=== PATIENT | male | born 1970 | race American Indian/Alaskan Native ===

== ENCOUNTER 2016-08-09 19:22 | Inpatient (IN) | payer OTHER ==
--- NOTE | 2016-08-09 19:39 | Emergency Department Report ---
HPI - General Chief Complaint: Chest Pain Time Seen by Provider: 08/09/16 19:30 - HPI HPI: This is a 46-year-old Afro-Eritrean male who presents to the emergency department by EMS from home with complaint of a one-hour history of left-sided chest pain that with radiation to the shoulder, down the left arm and to the back. He denies any shortness of breath, nausea, vomiting or diaphoresis. He did not take anything prior to presentation and was not given anything by EMS. His past medical history includes an aortic valve replacement last year at [facility] and hypertension. No recent travel or sick contacts at home. He denies any tobacco or illicit drug use or abuse. His cardiologists are through [facility] and/or the [place] [facility]ology group and his primary care doctor is through [facility]. ED Past Medical Hx - Past Medical History Previous Medical History?: Yes Hx Hypertension: Yes Hx Heart Attack/AMI: Yes Hx Psychiatric Treatment: Yes (Anxiety) - Surgical History Additional Surgical History: spinal fusion AORTC VALVE REPLACED, HERNIA REPAIR , ABD RESECTION - Social History Smoking Status: Never Smoker Substance Use Type: None - Medications Home Medications: Home Medications Medication Instructions Recorded Confirmed Last Taken Type Lisinopril [Zestril TAB] 40 mg PO QDAY #30 tablet 06/10/15 08/09/16 1 Day Ago Rx Metoprolol Tartrate 100 mg PO BID 08/09/16 08/09/16 1 Day Ago History ED Review of Systems ROS: Stated complaint: CP Other details as noted in HPI Comment: All other systems reviewed and negative Constitutional: denies: chills, fever Eyes: denies: eye pain, eye discharge, vision change ENT: denies: ear pain, throat pain Respiratory: denies: cough, shortness of breath, wheezing Cardiovascular: chest pain. denies: palpitations Gastrointestinal: denies: abdominal pain, nausea, diarrhea Musculoskeletal: back pain, arthralgia Skin: denies: rash, lesions Neurological: denies: headache, weakness, paresthesias Physical Exam - Physical Exam Vital Signs: Vital Signs 08/09/16 19:30 Temperature 98.8 F Pulse Rate 69 Respiratory 14 Rate Blood Pressure 165/102 Blood Pressure 183/104 [Left] O2 Sat by Pulse 98 Oximetry Physical Exam: GENERAL: The patient is well-developed well-nourished. Patient appears uncomfortable but in no acute distress. HEENT: Normocephalic. Atraumatic. Extraocular motions are intact. Patient has moist mucous membranes. Pupils equal reactive to light bilaterally. NECK: Supple. Trachea is midline. CHEST/LUNGS: Clear to auscultation. There is no respiratory distress noted. HEART/CARDIOVASCULAR: Regular. There is no tachycardia. There is no gallop rub or murmur. ABDOMEN: Abdomen is soft, nontender. Patient has normal bowel sounds. There is no abdominal distention. SKIN: Skin is warm and dry. NEURO: The patient is awake, alert, and oriented. The patient is cooperative. The patient has no focal neurologic deficits. The patient has normal speech. MUSCULOSKELETAL: There is no tenderness or deformity. There is no limitation range of motion. There is no evidence of acute injury. ED Course Vital Signs 08/09/16 19:30 Temperature 98.8 F Pulse Rate 69 Respiratory 14 Rate Blood Pressure 165/102 Blood Pressure 183/104 [Left] O2 Sat by Pulse 98 Oximetry ED Medical Decision Making - Lab Data Result diagrams: 08/09/16 19:47 08/09/16 19:47 - EKG Data -: EKG Interpreted by Me EKG shows normal: sinus rhythm, axis (left axis deviation), intervals, QRS complexes (right bundle-branch block, Q waves inferior leads), ST-T waves Rate: normal - EKG Data When compared to previous EKG there are: no significant change Interpretation: unchanged when compared t (06/16/15) - Radiology Data Radiology results: report reviewed, image reviewed interpreted by me: Chest x-ray did not show any acute process. No effusions. No pneumothorax. No signs of pneumonia seen. VQ scan is negative for pulmonary embolism - Medical Decision Making 46-year-old male presents the emergency department with acute left-sided chest pain with radiation to left arm, back and shoulder. Patient has a history of aortic dissection, aortic valve replacement. First troponin negative. EKG shows a bundle branch block and some Q waves in inferior leads but otherwise no change from previous and no ST elevation NJ. D-dimer is elevated so a CT angiography was going to be done. However the patient says that he does not think he is supposed to receive any contrast with some of his previous surgeries. For this reason a VQ scan was done instead came back negative for pulmonary embolus and. However the patient has not had a full cardiac workup in over a year and therefore will be admitted to hospital for further evaluation and treatment and has been accepted for admission by the hospitalist , Dr. Elise. - Differential Diagnosis NJ, PE, CHF, pneumonia Critical Care Time: No Critical care attestation.: If time is entered above; I have spent that time in minutes in the direct care of this critically ill patient, excluding procedure time. ED Disposition Clinical Impression: Hypertensive urgency Chest pain Qualifiers: Chest pain type: unspecified Qualified Code(s): R07.9 - Chest pain, unspecified Disposition: OP ADMITTED IP TO THIS HOSP Is pt being admited?: Yes Condition: Stable Instructions: Chest Pain (ED) Referrals: PRIMARY CARE, [Primary Care Provider] - 3-5 Days Time of Disposition: 23:52
[2016-08-09 19:56] LABS: Basophils % (Auto) 0.4 % (0.0-1.8); Eosinophils % (Auto) 1.4 % (0.0-4.3); Hemoglobin 13.9 gm/dl (11.8-15.2); Mean Corpuscular HGB Conc 32 % (32-34); Mean Corpuscular Hemoglobin 31 pg (28-32); Mean Corpuscular Volume 96 fl (84-94); Platelet Count 225 K/mm3 (140-440); Red Blood Count 4.48 M/mm3 (3.65-5.03); Red Cell Distribution Width 13.4 % (13.2-15.2)
[2016-08-09 20:21] LABS: Creatine Kinase MB 1.2 ng/mL (0.0-4.0)
[2016-08-09 20:22] LABS: Alanine Aminotransferase 13 units/L (7-56); Albumin 3.6 g/dL (3.9-5); Alkaline Phosphatase 68 units/L (35-129); Anion Gap 18 mmol/L; Bilirubin,Total 0.4 mg/dL (0.1-1.2); Blood Urea Nitrogen 12 mg/dL (9-20); Calcium 8.5 mg/dL (8.4-10.2); Carbon Dioxide 21 mmol/L (22-30); Chloride 101.4 mmol/L (98-107); Creatine Kinase 106 units/L (55-170); Glucose 116 mg/dL (75-100); Potassium 3.6 mmol/L (3.6-5.0); Sodium 137 mmol/L (137-145); Total Protein 7.2 g/dL (6.3-8.2)
[2016-08-09] MEDS ORDERED: BABY ASPIRIN PO ONE (20:37)
[2016-08-09] MEDS ORDERED: PERCOCET 5/325 PO ONE (20:47)
[2016-08-09 22:22] LABS: Bilirubin,Urine NEG (Negative); Blood,Urine NEG (Negative); Ketones,Urine NEG (Negative); Leukocyte Esterase,Urine NEG (Negative); Nitrite,Urine NEG (Negative); Protein,Urine <15 mg/dL mg/dL (Negative); Urobilinogen,Urine < 2.0 mg/dL (<2.0)
--- NOTE | 2016-08-09 23:33 | Nuclear Medicine Report ---
FINAL REPORT PROCEDURE: NM LUNG SCAN PERF/VENT TECHNIQUE: 5.0 mCi Tc-99m MAA was injected IV for pulmonary perfusion imaging in multiple projections. 15.0 mCi XE 133 gas was inhaled for pulmonary ventilation imaging in multiple projections. Injection site: RIGHT antecubital fossa. CPT 14008 HISTORY: CP, elevated dimer COMPARISON: Chest x-ray, earlier the same day FINDINGS: Perfusion: No defects. Homogeneous perfusion Ventilation: No defects . IMPRESSION: Normal Examination
[2016-08-09] MEDS ORDERED: DULCOLAX PR PRN (23:59)
[2016-08-09] MEDS ORDERED: ZOFRAN IV PRN (23:59)
[2016-08-09] MEDS ORDERED: TYLENOL PO PRN (23:59)
[2016-08-09] MEDS ORDERED: MILK OF MAGNESIA PO PRN (23:59)
--- NOTE | 2016-08-09 23:59 | History and Physical Report ---
History of Present Illness Date of examination: 08/10/16 History of present illness: 6-year-old man with a history of hypertension, aortic dissection comes emergency room with complaints of chest pain. Pain is in the left chest which she describes as a sharp stabbing pain, constant, intensity pelvic 10, radiating to the left arm, he cannot identify exacerbating or relieving factors. He denies nausea vomiting, shortness breath, diaphoresis or palpitation Patient denies cough, abdominal pain, hematochezia, dysuria, frequency, focal weakness, dysarthria, fever chills, polydipsia polyuria, hot or cold intolerance , easy bruisability, or rash or bleeding from mucosal membrane, rhinorrhea, epistaxis, earache, tinnitus, blurry vision, eye discharge, anxiety, depression. Other review of systems negative PAST SURGICAL HISTORY: Aorta repair secondary to dissection, Hernia repair, bipolar SOCIAL HISTORY: Social alcohol use, no tobacco or drugs FAMILY HISTORY: Hypertension Medications and Allergies Allergies Allergy/AdvReac Type Severity Reaction Status Date / Time morphine Allergy Rash Verified 08/09/16 19:36 Nitrate Analogues AdvReac Unknown Verified 08/09/16 19:36 tramadol AdvReac Unknown Verified 08/09/16 19:36 Home Medications Medication Instructions Recorded Confirmed Last Taken Type Lisinopril [Zestril TAB] 40 mg PO QDAY #30 tablet 06/10/15 08/09/16 1 Day Ago Rx Metoprolol Tartrate 100 mg PO BID 08/09/16 08/09/16 1 Day Ago History Exam - Physical Exam Narrative exam: Gen. appearance: Patient lying in bed, no apparent distress HEENT: Normocephalic, atraumatic, pupils equally round and reactive to light, extraocular movement intact, and no sclericterus,. No JVD or thyromegaly or nodule,neck supple, no carotid bruit ,mucous membranes moist, no exudate or erythema Heart: S1, S2, regular rate and rhythm Lungs: Clear to auscultation bilaterally, breathing comfortable Abdomen: Positive bowel sounds, nontender, nondistended, no organomegaly Extremity: No edema, cyanosis, clubbing Skin: No rash, nodules, warm, dry Neuro: Oriented 3, cranial nerves II-12 intact, speech is fluent, motor and sensory intact - Constitutional Vitals: Temp Pulse Resp BP Pulse Ox 98.8 F 69 18 183/104 98 08/09/16 19:30 08/09/16 19:30 08/09/16 21:06 08/09/16 19:30 08/09/16 20:18 Results - Labs CBC & Chem 7: 08/09/16 19:47 08/09/16 19:47 Labs: Abnormal lab results 08/09/16 08/09/16 08/09/16 Range/Units 19:47 19:47 21:09 MCV 96 H (84-94) fl [place] % (Auto) 7.8 H (0.0-7.3) % [place] # 0.9 H (0.0-0.8) K/mm3 D-Dimer 775.29 H (0-234) ng/mlDDU Carbon Dioxide 21 L (22-30) mmol/L Glucose 116 H (75-100) mg/dL Albumin 3.6 L (3.9-5) g/dL - Imaging and Cardiology EKG: image reviewed Chest x-ray: image reviewed Assessment and Plan VQ low probability for PE Hypertensive urgency Chest pain was likely secondary to #1 Check cardiac enzymes, lipid profile, consult cardiology Start DVT prophylaxis, IV morphine
[2016-08-10] MEDS ORDERED: MILK OF MAGNESIA PO PRN (00:19)
[2016-08-10] MEDS ORDERED: TYLENOL PO PRN (00:19)
[2016-08-10] MEDS ORDERED: DULCOLAX PR PRN (00:19)
[2016-08-10] MEDS ORDERED: SODIUM CHLORIDE FLUSH SYRINGE 10 ML IV PRN (00:19)
[2016-08-10] MEDS ORDERED: APRESOLINE IV PRN (00:19)
[2016-08-10] MEDS ORDERED: ZOFRAN IV PRN (00:19)
[2016-08-10] MEDS ORDERED: DILAUDID IV PRN (00:22)
--- NOTE | 2016-08-10 01:39 | Admit Criteria Form ---
Admission Criteria Documentation: HYPERTENSION Clinical Indications for Admission to Inpatient Care ( Place "X" for any and all applicable criteria): Admission is indicated for ANY ONE of the following(1)(2)(3)(4): [X ]I. Hypertensive emergency, with evidence of acute and progressing target organ disease as indicated by ANY ONE of the following: [ ]a) Hypertensive encephalopathy (eg, confusion, altered mental status) [ ]b) Cerebral infarction [ ]c) Intracranial hemorrhage [ ]d) Myocardial ischemia or infarction [ ]e) Pulmonary edema [X ]f) Aortic dissection [ ]g) Seizure [ ]h) Acute renal insufficiency [ ]i) Papilledema [ ]j) Microangiopathic hemolytic anemia [ ]II. Adrenergic crisis (eg, severe hypertension due to pheochromocytoma crisis, cocaine or amphetamine intoxication, or clonidine withdrawal) [ ]III. Severe hypertension (SBP greater than 180 mmHg or DBP greater than 110 mmHg or greater than the 95th percentile for age, gender, and height in pediatric patients) that cannot be controlled (eg, to SBP less than 160 mmHg and DBP less than 100 mmHg in adults) by treatment with oral medication in emergency department or observation care Extended stay beyond goal length of stay may be needed for(11)(12)(13): [ ]a) Persistent hypertensive encephalopathy [ ]b) Continuation of pulmonary edema [ ]c) Recurring or persistent severe hypertension [ ]d) Target organ damage (eg, angina, stroke, aortic dissection) [ ]e) Associated renal insufficiency The original [employer] content created by [employer] has been revised. The portions of the content which have been revised are identified through the use of italic text or in bold, and [facility] has neither reviewed nor approved the modified material. All other unmodified content is copyright [employer]. Please see references footnoted in the original [facility] edition 2016 Admission Criteria Met: Yes
--- NOTE | 2016-08-10 08:52 | Consultation ---
History of Present Illness Consult date: 08/10/16 Requesting physician: JOSR MCDONALD Consult reason: chest pain, other (H/o dissection ) History of present illness: Pt is a 46YO male with a past medical history significant for HTN and ascending aortic dissection with retrograde hematoma to ascending aorta s/p repair on 2015. He is followed by cardiology team at [facility] and/or the [place] cardiology group and his primary care doctor is through [facility]. He presented with c/o chest pain since yesterday at 5PM. He states that he was at rest yesterday evening when he noted sudden onset, aching, nonexertional left- sided chest pain which radiated into his left shoulder and down his left arm. The pain persisted until he arrived at the ED and received ASA. He denies any associated SOB, orthopnea, n/v, palpitations, diaphoresis, dizziness, or syncope. He reports that he ran out of his BP medications and had not taken any medications for 2 days [employer]ANT DIRECT[employer]. On arrival, his BP was noted to be 183/104. He denies any prior occurrences of chest pain or cardiac issues since his aortic dissection repair in 06/2015. Past History Past Medical History: hypertension, other (ascending aortic dissection) Past Surgical History: Other (aortic dissection with repair; vertebral fusion ) Social history: , lives with family. denies: smoking, alcohol abuse, prescription drug abuse Medications and Allergies Allergies Allergy/AdvReac Type Severity Reaction Status Date / Time morphine Allergy Rash Verified 08/09/16 19:36 Nitrate Analogues AdvReac Unknown Verified 08/09/16 19:36 tramadol AdvReac Unknown Verified 08/09/16 19:36 Home Medications Medication Instructions Recorded Confirmed Last Taken Type Lisinopril [Zestril TAB] 40 mg PO QDAY #30 tablet 06/10/15 08/09/16 1 Day Ago Rx Metoprolol Tartrate 100 mg PO BID 08/09/16 08/09/16 1 Day Ago History Active Meds: Active Medications Acetaminophen (Tylenol) 650 mg PO Q4H PRN PRN Reason: Pain MILD(1-3)/Fever >100.5/YAÑEZ Bisacodyl (Dulcolax) 10 mg MS QDAY PRN PRN Reason: Constipation unrelieved by MOM Enoxaparin Sodium (Lovenox) 40 mg SUB-Q DAILY STEPHANIE Hydralazine HCl (Apresoline) 5 mg IV Q6H PRN PRN Reason: Hypertension Hydromorphone HCl (Dilaudid) 1 mg IV Q4H PRN PRN Reason: Pain , Severe (7-10) Last Admin: 08/10/16 02:21 Dose: 1 mg Magnesium Hydroxide (Milk Of Magnesia) 30 ml PO Q4H PRN PRN Reason: Constipation Ondansetron HCl (Zofran) 4 mg IV Q8H PRN PRN Reason: N/V unrelieved by Reglan Sodium Chloride (Sodium Chloride Flush Syringe 10 Ml) 10 ml IV PRN PRN PRN Reason: LINE FLUSH Review of Systems Constitutional: no weight loss, no weight gain, no fever, no chills, no sweats Ears, nose, mouth and throat: no ear pain, no nose pain, no sinus pressure, no sinus pain Cardiovascular: chest pain, high blood pressure, no orthopnea, no palpitations, no rapid/irregular heart beat, no edema, no syncope, no lightheadedness, no shortness of breath, no dyspnea on exertion, no paroxysmal nocturnal dyspnea, no leg edema, no decreased exercise tolerance Respiratory: no cough, no shortness of breath, no dyspnea on exertion, no congestion, no wheezing, no pain on inspiration Gastrointestinal: no abdominal pain, no nausea, no vomiting, no diarrhea, no constipation, no change in bowel habits Genitourinary Male: no dysuria, no hematuria, no flank pain, no discharge, no urinary frequency, no urinary hesitancy Musculoskeletal: shooting arm pain (LUE associated with cp), no neck stiffness, no neck pain, no arm numbness/tingling, no low back pain, no shooting leg pain, no leg numbness/tingling, no redness of joints Integumentary: no rash, no pruritis, no redness, no sores, no wounds Neurological: no head injury, no paralysis, no weakness, no parathesias, no numbness, no tingling, no seizures, no syncope, no lack of coordination Endocrine: no cold intolerance, no heat intolerance Hematologic/Lymphatic: no easy bruising, no easy bleeding, no lymphadenopathy Allergic/Immunologic: no urticaria, no wheezing, no persistent infections Physical Examination Last Vital Signs Temp 97.8 F 08/10/16 08:19 Pulse 63 08/10/16 08:19 Resp 18 08/10/16 08:19 BP 136/90 08/10/16 08:19 Pulse Ox 97 08/10/16 08:19 General appearance: no acute distress HEENT: Positive: PERRL, Normocephaly, Mucus Membranes Moist Neck: Positive: neck supple, trachea midline Cardiac: Positive: Reg Rate and Rhythm, S1/S2 Lungs: Positive: Normal Exam, clear to auscultation, Normal Breath Sounds Neuro: Positive: Grossly Intact, Cranial Nerve 2-12 Intact Abdomen: Positive: Unremarkable, Soft, Active Bowel Sounds. Negative: Tender Skin: Positive: Clear. Negative: Rash, Wound Musculoskeletal: No Fluid Collection, No Pain, Normal Range of Motion Extremities: Present: normal, upper extr. pulses, lower extr. pulses. Absent: edema Results 08/09/16 19:47 08/09/16 19:47 - Imaging and Cardiology Echo: pending Cardiac cath: report reviewed (06/2015: no significant CAD, RCA dominant mild LI , LAD and ramus mild LI, small LCX LI, EF 55%, ascending aortic hematoma) EKG: report reviewed, image reviewed EKG interpretations - Telemetry EKG Rhythm: Sinus Rhythm - EKG Sinus rhythms and dysrhythmias: sinus rhythm AV and intraventricular conduction: right bundle branch block Myocardial infarction: inferior IN (old age inde Assessment and Plan Assessment: Chest pain, atypical - Sukhjinder negative for AMI x 3 sets; ECG with NAF; CXR with NAF ; C 06/21/2015 revealed no significant CAD, RCA dominant mild LI, LAD and ramus mild LI, small LCX LI, EF 55%, ascending aortic hematoma. Accelerated HTN Elevated DDimer - V/Q scan negative for PE H/o ascending aortic dissection with retrograde hematoma to ascending aorta s/p repair on 06/22/2015 RBBB - present since 06/2015 Plan: Obtain echo. ACS ruled out. No indication for ischemic evaluation at this time. Initiate toprol XL 100mg daily, and lisinopril, 40mg daily. Assessment and plan reviewed with pt at bedside. The patient has been seen in conjunction with Dr. Campuzano who agrees with the assessment and plan of care.
--- NOTE | 2016-08-10 09:12 | XRay Report ---
PORTABLE CHEST INDICATION: Chest pain. COMPARISON: 07/13/2015 chest imaging. FINDINGS: Portable, frontal chest radiograph demonstrates interval sternotomy. Right axillary surgical clips are also new. Slightly greater inspiration with mild exaggerated cardiomediastinal silhouette and slightly crowded lung markings centrally in this patient with aortic knob again prominent/known aortic dissection. Lungs though clear. EKG leads. No acute osseous process. CONCLUSION: Interval sternotomy in this patient with known aortic dissection in the past, as described. Please also correlate clinically. I phoned the above results to Dr. Aguilar, 9:00 AM, 08/10/2016. Thank you for the opportunity to participate in this patient's care.
[2016-08-10] MEDS ORDERED: LOVENOX SUB-Q SCH (10:00)
[2016-08-10 10:35] LABS: Creatine Kinase MB < 1.0 ng/mL (0.0-4.0)
[2016-08-10 10:37] LABS: Creatine Kinase 81 units/L (55-170)
[2016-08-10] MEDS: TOPROL XL PO SCH (13:08)
[2016-08-10] MEDS: ZESTRIL PO SCH (13:09)
[2016-08-10] MEDS: LOVENOX SUB-Q SCH (13:09)
--- NOTE | 2016-08-10 15:06 | Progress Note ---
Assessment and Plan Assessment and plan: 1. Chest pain EKG with no acute ischemia changes, cardiac enzymes negative Cardiac cath one year ago showing nonobstructive CAD D-dimer elevated, so a VQ scan obtained but with low probability for PE ECHO pending Likely secondary to uncontrolled hypertension Cardiology following 2. Uncontrolled hypertension Due to noncompliance BP 183/108 on admission Started on metoprolol and lisinopril Today SBP in 130s Monitor and adjust regimen as needed 3. Noncompliance Consult regarding importance of adherence to treatment and follow-ups 4. 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 RBBB since 06/28 6. DVT prophylaxis Lovenox 7. Discharge planning Discharge in a.m. if BP well controlled and cardiology agrees Hospitalist Physical - Constitutional Vitals: Temp Pulse Resp BP Pulse Ox 98.0 F 58 L 18 139/80 95 08/10/16 12:16 08/10/16 13:09 08/10/16 12:16 08/10/16 13:09 08/10/16 12:16 General appearance: Present: no acute distress, obese - EENT Eyes: Present: PERRL, EOM intact. Absent: scleral icterus, conjunctival injection - Neck Neck: Present: supple, normal ROM. Absent: masses or JVD - Respiratory Respiratory effort: normal Respiratory: bilateral: CTA, negative: rhonchi, wheezing - Cardiovascular Rhythm: regular Heart Sounds: Present: S1 & S2 - Extremities Extremities: no ischemia, No edema - Abdominal General gastrointestinal: soft, non-tender, non-distended, normal bowel sounds - Psychiatric Psychiatric: cooperative - Neurologic Neurologic: CNII-XII intact, no focal deficits Results - Labs CBC & Chem 7: 08/09/16 19:47 08/09/16 19:47 Labs: Laboratory Last Values WBC 11.0 K/mm3 (4.5-11.0) 08/09/16 19:47 RBC 4.48 M/mm3 (3.65-5.03) 08/09/16 19:47 Hgb 13.9 gm/dl (11.8-15.2) 08/09/16 19:47 Hct 43.0 % (35.5-45.6) 08/09/16 19:47 MCV 96 fl (84-94) H 08/09/16 19:47 MCH 31 pg (28-32) 08/09/16 19:47 MCHC 32 % (32-34) 08/09/16 19:47 RDW 13.4 % (13.2-15.2) 08/09/16 19:47 Plt Count 225 K/mm3 (140-440) 08/09/16 19:47 Lymph % (Auto) 21.8 % (13.4-35.0) 08/09/16 19:47 [place] % (Auto) 7.8 % (0.0-7.3) H 08/09/16 19:47 Eos % (Auto) 1.4 % (0.0-4.3) 08/09/16 19:47 Baso % (Auto) 0.4 % (0.0-1.8) 08/09/16 19:47 Lymph # 2.4 K/mm3 (1.2-5.4) 08/09/16 19:47 [place] # 0.9 K/mm3 (0.0-0.8) H 08/09/16 19:47 Eos # 0.2 K/mm3 (0.0-0.4) 08/09/16 19:47 Baso # 0.0 K/mm3 (0.0-0.1) 08/09/16 19:47 Seg Neutrophils % 68.6 % (40.0-70.0) 08/09/16 19:47 Seg Neutrophils # 7.5 K/mm3 (1.8-7.7) 08/09/16 19:47 D-Dimer 775.29 ng/mlDDU (0-234) H 08/09/16 21:09 Sodium 137 mmol/L (137-145) 08/09/16 19:47 Potassium 3.6 mmol/L (3.6-5.0) 08/09/16 19:47 Chloride 101.4 mmol/L (98-107) 08/09/16 19:47 Carbon Dioxide 21 mmol/L (22-30) L 08/09/16 19:47 Anion Gap 18 mmol/L 08/09/16 19:47 BUN 12 mg/dL (9-20) 08/09/16 19:47 Creatinine 1.0 mg/dL (0.8-1.5) 08/09/16 19:47 Estimated GFR > 60 ml/min 08/09/16 19:47 BUN/Creatinine Ratio 12.00 % 08/09/16 19:47 Glucose 116 mg/dL (75-100) H 08/09/16 19:47 Calcium 8.5 mg/dL (8.4-10.2) 08/09/16 19:47 Total Bilirubin 0.4 mg/dL (0.1-1.2) 08/09/16 19:47 AST 15 units/L (5-40) 08/09/16 19:47 ALT 13 units/L (7-56) 08/09/16 19:47 Alkaline Phosphatase 68 units/L (35-129) 08/09/16 19:47 Total Creatine Kinase 81 units/L (55-170) 08/10/16 10:00 CK-MB (CK-2) < 1.0 ng/mL (0.0-4.0) 08/10/16 10:00 CK-MB (CK-2) Rel Index 1.2 (0-4) 08/10/16 10:00 Troponin T 0.082 ng/mL (0.00-0.029) H D 08/10/16 13:15 Total Protein 7.2 g/dL (6.3-8.2) 08/09/16 19:47 Albumin 3.6 g/dL (3.9-5) L 08/09/16 19:47 Albumin/Globulin Ratio 1.0 % 08/09/16 19:47 Urine Color Straw (Yellow) 08/09/16 21:56 Urine Turbidity Clear (Clear) 08/09/16 21:56 Urine pH 6.0 (5.0-7.0) 08/09/16 21:56 Ur Specific [place] 1.008 (1.003-1.030) 08/09/16 21:56 Urine Protein <15 mg/dl mg/dL (Negative) 08/09/16 21:56 Urine Glucose (UA) Neg mg/dL (Negative) 08/09/16 21:56 Urine Ketones Neg mg/dL (Negative) 08/09/16 21:56 Urine Blood Neg (Negative) 08/09/16 21:56 Urine Nitrite Neg (Negative) 08/09/16 21:56 Urine Bilirubin Neg (Negative) 08/09/16 21:56 Urine Urobilinogen < 2.0 mg/dL (<2.0) 08/09/16 21:56 Ur Leukocyte Esterase Neg (Negative) 08/09/16 21:56 Urine WBC (Auto) 1.0 /HPF (0.0-6.0) 08/09/16 21:56 Urine RBC (Auto) 4.0 /HPF (0.0-6.0) 08/09/16 21:56 U Epithel Cells (Auto) < 1.0 /HPF (0-13.0) 08/09/16 21:56
[2016-08-11 05:33] LABS: Basophils % (Auto) 0.4 % (0.0-1.8); Eosinophils % (Auto) 1.7 % (0.0-4.3); Hematocrit 42.4 % (35.5-45.6); Hemoglobin 14.1 gm/dl (11.8-15.2); Mean Corpuscular HGB Conc 33 % (32-34); Mean Corpuscular Hemoglobin 32 pg (28-32); Mean Corpuscular Volume 96 fl (84-94); Platelet Count 209 K/mm3 (140-440); Red Blood Count 4.42 M/mm3 (3.65-5.03); Red Cell Distribution Width 13.5 % (13.2-15.2); White Blood Count 8.9 K/mm3 (4.5-11.0)
[2016-08-11 06:00] LABS: Anion Gap 16 mmol/L; Blood Urea Nitrogen 11 mg/dL (9-20); Calcium 8.8 mg/dL (8.4-10.2); Carbon Dioxide 22 mmol/L (22-30); Chloride 103.8 mmol/L (98-107); Glucose 109 mg/dL (75-100); Potassium 3.8 mmol/L (3.6-5.0); Sodium 138 mmol/L (137-145)
--- NOTE | 2016-08-11 10:07 | Discharge Summary ---
Providers - Providers Date of Admission: 08/09/16 23:59 Date of discharge: 08/11/16 Attending physician: WYATT LOPEZ 08/10/16 Consult to Cardiac Rehabilitation [CONS] Routine Reason For Exam: Phase I 08/10/16 00:19 Consult to Physician [CONS] Routine Consulting Provider: ELENA TINAJERO Reason For Exam: cp/ h/o dissection Place consult to:: Dr. Tsang Notified:: Kami NEFF Phone number called:: Was contact made?: Yes If yes, spoke with:: [facility] Time called:: 07:53 Primary care physician: CARDIOVASCULAR RADIOLOGIC TECHNOLOGIST Hospitalization Reason for admission: chest pain Condition: Stable Pertinent studies: CXR V/Q scan ECHO Disposition: DISCHARGED TO HOME OR SELFCARE Time spent for discharge: 35 min Core Measure Documentation - Palliative Care Palliative Care/ Comfort Measures: Not Applicable - Core Measures Any of the following diagnoses?: none Exam - Constitutional Vitals: Temp Pulse Resp BP Pulse Ox 97.7 F 76 18 164/100 94 08/11/16 08:30 08/11/16 08:30 08/11/16 08:30 08/11/16 08:30 08/11/16 08:30 Plan Activity: advance as tolerated Diet: low cholesterol, low salt Additional Instructions: 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
[2016-08-11] MEDS: TOPROL XL PO SCH (11:05)
[2016-08-11] MEDS: ZESTRIL PO SCH (11:05)
[2016-08-11] MEDS: LOVENOX SUB-Q SCH (11:06)
[2016-08-11 12:08] VITALS: BP 137/91
== END 2016-08-11 11:35 | disposition home or self-care (01) | DRG 305 ==
LOC: ED 19:22 → 4A 23:59
PROVIDERS: ADMIT Internal Medicine; ATTEND Internal Medicine
DX: I16.0 Hypertensive urgency (principal); R07.89 Other chest pain; I10 Essential (primary) hypertension; F41.9 Anxiety disorder, unspecified; I45.10 Unspecified right bundle-branch block; Z98.890 Other specified postprocedural states; Z72.89 Other problems related to lifestyle; Z88.6 Allergy status to analgesic agent; Z91.09 Other allergy status, other than to drugs and biological substances; Z91.14 Patient's other noncompliance with medication regimen; Z82.49 Family history of ischemic heart disease and other diseases of the circulatory system
CPT/HCPCS: 36415; 71010; 78582; 80048; 80053; 81001; 82550; 82553; 84484; 85025; 85379; 93005; 93010; 93306; A9540; A9558; J1170; J1650

== ENCOUNTER 2018-01-10 13:15 | Emergency (ER) | payer SELFPAY ==
[2018-01-10 13:28] VITALS: BP 158/87
[2018-01-10] MEDS ORDERED: NORCO 5/325 PO ONE (14:32)
[2018-01-10] MEDS ORDERED: MOTRIN PO ONE (14:32)
--- NOTE | 2018-01-10 14:32 | Emergency Department Report ---
ED General Adult HPI - General Chief complaint: Dizziness Stated complaint: BEE STINGS AND DIZZY Time Seen by Provider: 01/10/18 14:25 Source: patient Mode of arrival: Ambulatory Limitations: No Limitations - History of Present Illness Initial comments: Mr. Torres is 47 yo male who presents with left foot pain due to bee stings while doing yard work. he was stung 4 times in left foot. +nausea. No dyspnea. No difficulty swallowing. he drove to ED -: Sudden Severity scale (0 -10): 10 Quality: burning Consistency: constant - Related Data Previous Rx's Medication Instructions Recorded Last Taken Type Lisinopril [Zestril TAB] 40 mg PO QDAY #30 tablet 08/11/16 Unknown Rx Metoprolol Xl [Metoprolol 100 mg PO QDAY #30 tablet 08/11/16 Unknown Rx SUCCINATE ER TAB] HYDROcodone/APAP 5-325 [Julian 1 each PO Q6HR PRN #10 tablet 01/10/18 Unknown Rx 5/325] predniSONE [Deltasone] 3 tab PO QDAY 4 Days #12 tab 01/10/18 Unknown Rx Allergies Allergy/AdvReac Type Severity Reaction Status Date / Time morphine Allergy Rash Verified 08/09/16 19:36 Nitrate Analogues AdvReac Unknown Verified 08/09/16 19:36 tramadol AdvReac Unknown Verified 08/09/16 19:36 ED Review of Systems ROS: Stated complaint: BEE STINGS AND DIZZY Other details as noted in HPI Constitutional: denies: fever, malaise ENT: denies: throat pain Respiratory: denies: cough Cardiovascular: denies: chest pain Gastrointestinal: nausea. denies: abdominal pain Skin: denies: rash, lesions ED Past Medical Hx - Past Medical History Hx Hypertension: Yes Hx Heart Attack/AMI: Yes Hx Congestive Heart Failure: No Hx Diabetes: No Hx Psychiatric Treatment: Yes (Anxiety) Hx Asthma: No Hx COPD: No - Surgical History Past Surgical History?: Yes Additional Surgical History: spinal fusion AORTC VALVE REPLACED, HERNIA REPAIR , ABD RESECTION - Social History Smoking Status: Never Smoker Substance Use Type: None - Medications Home Medications: Home Medications Medication Instructions Recorded Confirmed Last Taken Type Lisinopril [Zestril TAB] 40 mg PO QDAY #30 tablet 08/11/16 Unknown Rx Metoprolol Xl [Metoprolol 100 mg PO QDAY #30 tablet 08/11/16 Unknown Rx SUCCINATE ER TAB] HYDROcodone/APAP 5-325 [Julian 1 each PO Q6HR PRN #10 tablet 01/10/18 Unknown Rx 5/325] predniSONE [Deltasone] 3 tab PO QDAY 4 Days #12 tab 01/10/18 Unknown Rx ED Physical Exam - General Limitations: No Limitations General appearance: alert, in no apparent distress - Head Head exam: Present: atraumatic, normocephalic - Eye Eye exam: Present: normal appearance - ENT ENT exam: Present: mucous membranes dry - Neck Neck exam: Present: normal inspection. Absent: tenderness, meningismus - Respiratory Respiratory exam: Absent: respiratory distress - Cardiovascular Cardiovascular Exam: Absent: systolic murmur, diastolic murmur, rubs, gallop - Extremities Exam Extremities exam: Present: normal inspection - Back Exam Back exam: Present: normal inspection - Neurological Exam Neurological exam: Present: alert, oriented X3 - Psychiatric Psychiatric exam: Present: normal affect, normal mood - Skin Skin exam: Present: warm, dry, intact, normal color, other (1 small papule at left ankle unable to visualize stinger). Absent: rash ED Course Vital Signs 01/10/18 13:26 Temperature 98.1 F Pulse Rate 58 L Respiratory 16 Rate Blood Pressure 158/87 O2 Sat by Pulse 99 Oximetry ED Medical Decision Making - Medical Decision Making bee stings, localized reaction: rx: prednsregino, norco Critical care attestation.: If time is entered above; I have spent that time in minutes in the direct care of this critically ill patient, excluding procedure time. ED Disposition Clinical Impression: Bee sting reaction Disposition: - TO HOME OR SELFCARE Is pt being admited?: No Does the pt Need Aspirin: No Condition: Stable Instructions: Insect Bite or Sting (ED) Prescriptions: HYDROcodone/APAP 5-325 [Julian 5/325] 1 each PO Q6HR PRN #10 tablet PRN Reason: Pain predniSONE [Deltasone] 3 tab PO QDAY 4 Days #12 tab
[2018-01-10] MEDS ORDERED: BENADRYL PO ONE (14:33)
[2018-01-10] MEDS ORDERED: PEPCID PO ONE (14:33)
[2018-01-10] MEDS ORDERED: DELTASONE PO ONE (14:33)
== END 2018-01-10 14:49 | disposition home or self-care (01) ==
LOC: ED 13:15
DX: T63.441A Toxic effect of venom of bees, accidental (unintentional), initial encounter (principal); I10 Essential (primary) hypertension; F41.9 Anxiety disorder, unspecified; I25.2 Old myocardial infarction; Z88.6 Allergy status to analgesic agent; Z79.899 Other long term (current) drug therapy; Y92.017 Garden or yard in single-family (private) house as the place of occurrence of the external cause
CPT/HCPCS: 99282; J7512

== ENCOUNTER 2018-10-16 01:50 | Inpatient (IN) | payer MEDICARE ==
[2018-10-16 02:24] LABS: Basophils # (Auto) 0.1 K/mm3 (0.0-0.1); Basophils % (Auto) 0.6 % (0.0-1.8); Eosinophils # (Auto) 0.2 K/mm3 (0.0-0.4); Eosinophils % (Auto) 1.7 % (0.0-4.3); Hematocrit 43.4 % (35.5-45.6); Hemoglobin 14.5 gm/dl (11.8-15.2); Lymphocytes # (Auto) 3.4 K/mm3 (1.2-5.4); Lymphocytes % (Auto) 28.6 % (13.4-35.0); Mean Corpuscular HGB Conc 33 % (32-34); Mean Corpuscular Volume 97 fl (84-94); Monocytes % (Auto) 8.7 % (0.0-7.3); Platelet Count 228 K/mm3 (140-440); Red Blood Count 4.46 M/mm3 (3.65-5.03); Red Cell Distribution Width 12.9 % (13.2-15.2)
[2018-10-16 02:28] LABS: Bilirubin,Urine NEG (Negative); Blood,Urine NEG (Negative); Color,Urine Amber (Yellow); Hyaline Casts,Urine 52 /LPF; Mucus,Urine 2+ /HPF; Protein,Urine <15 mg/dL mg/dL (Negative)
[2018-10-16 02:46] LABS: Albumin 4.2 g/dL (3.9-5); Calcium 9.6 mg/dL (8.4-10.2)
--- NOTE | 2018-10-16 03:20 | XRay Report ---
ABDOMEN 1 VIEW(S) INDICATION / CLINICAL INFORMATION: abd pain. Pain radiates to back when walking COMPARISON: None available. FINDINGS: TUBES / LINES: None. BOWEL GAS PATTERN: There are dilated gas containing loops of small bowel in the left upper abdomen wi th accompanying air-fluid levels. Normal colonic bowel gas pattern is noted. FREE AIR / EXTRALUMINAL GAS: None seen. ADDITIONAL FINDINGS: No significant additional findings. IMPRESSION: 1. Abnormal bowel gas pattern. Dilated small bowel loops with air-fluid levels are present and suspic ious for bowel obstruction. Signer Name: Soumya Nair MD Signed: 10/16/2018 3:16 AM Workstation Name: [email or web address]
[2018-10-16] MEDS ORDERED: NORCO 5/325 PO ONE (04:01)
--- NOTE | 2018-10-16 04:44 | Cat Scan Report ---
CT abdomen pelvis wo con INDICATION / CLINICAL INFORMATION: abd pain, MODE. TECHNIQUE: Axial CT imaging of the abdomen and pelvis was performed without IV contrast. Coronal and sagittal re formatted imaging obtained and reviewed. All CT scans at this location are performed using CT dose re duction for ALARA by means of automated exposure control. COMPARISON: Prior CT abdomen, 06/16/2015 FINDINGS: CT abdomen without contrast demonstrates grossly normal appearance of the liver, spleen, pancreas, ki dneys, and adrenal glands. Multiple small gallstones are present within the gallbladder. The gallblad iwona does not appear to be acutely inflamed or abnormally distended. CT pelvis demonstrates mild sigmoid diverticulosis without evidence of diverticulitis. Normal appendi x is present. There are several loops of mildly dilated fluid-filled small bowel in the central abdomen. There is a small umbilical hernia containing a small segment of small bowel. This is the cause of the small bow el obstruction. Umbilical hernia was present on the prior CT scan. However, at that time the hernia d id not contain any bowel. No free fluid or free air noted. Images through the lung bases show mildly aneurysmal descending thoracic aorta with maximum transvers e diameter of 5.[address] demonstrated aortic dissection. No acute pulmonary or pleural disease noted. IMPRESSION: 1. Umbilical hernia containing a small knuckle of small bowel. This is causing a small bowel obstruct ion. This report was called to Dr. Angulo at 0340 hours 2. Cholelithiasis without CT evidence of acute cholecystitis. 3. 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 Patient has known history of aortic dissection. Signer Name: Soumya Nair MD Signed: 10/16/2018 4:40 AM Workstation Name: [id number]
--- NOTE | 2018-10-16 04:55 | Emergency Department Report ---
HPI - General Chief Complaint: Abdominal Pain Time Seen by Provider: 10/16/18 02:41 - HPI HPI: 48-year-old male presents to the emergency department from home with a complaint of some abdominal pain that started yesterday around 4 PM. He denies any nausea, vomiting, diarrhea, constipation, fever. He has not taken anything for his symptoms prior to presentation. It is 10 out of 10 in intensity. He says that it radiates to his back when he walks. 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 His primary care physician is Dr. Sandoval Valladares. No recent travel or sick contacts at home. ED Past Medical Hx - Past Medical History Previous Medical History?: Yes Hx Hypertension: Yes Hx Heart Attack/AMI: Yes (AORTIC GUILLERMO-ARCH) Hx Psychiatric Treatment: Yes (Anxiety) - Surgical History Past Surgical History?: Yes Additional Surgical History: spinal fusion AORTC VALVE REPLACED, HERNIA REPAIR, ABD RESECTION - Social History Smoking Status: Never Smoker Substance Use Type: None - Medications Home Medications: Home Medications Medication Instructions Recorded Confirmed Last Taken Type Lisinopril [Zestril TAB] 40 mg PO QDAY #30 tablet 08/11/16 10/16/18 Unknown Rx Aspirin 325 mg PO QDAY 10/16/18 10/16/18 Unknown History Butalb/Acetaminophen/Caffeine 1 cap PO Q6HR PRN 10/16/18 10/16/18 Unknown History [Fioricet 50-300-40 mg CAP] Fluticasone Propionate [Flovent 50 mcg QDAY 10/16/18 10/16/18 Unknown History Diskus] Metoprolol Xl [Metoprolol 100 mg PO BID 10/16/18 10/16/18 Unknown History SUCCINATE ER TAB] Sucralfate [Carafate] 1 gm PO Q6HR 10/16/18 10/16/18 Unknown History Triamterene/Hydrochlorothiazid 1 each PO QDAY 10/16/18 10/16/18 Unknown History [Triamterene-Hctz 37.5-25 mg Cp] ED Review of Systems ROS: Stated complaint: ABD PAIN Other details as noted in HPI Comment: All other systems reviewed and negative Constitutional: denies: chills, fever Eyes: denies: eye pain, vision change ENT: denies: ear pain, throat pain Respiratory: denies: cough, shortness of breath Cardiovascular: denies: chest pain, palpitations Gastrointestinal: abdominal pain. denies: nausea, vomiting Genitourinary: denies: dysuria, frequency Musculoskeletal: denies: arthralgia, myalgia Skin: denies: rash, lesions Neurological: denies: headache, weakness Physical Exam - Physical Exam Vital Signs: Vital Signs 10/16/18 10/16/18 10/16/18 01:54 02:24 02:25 Temperature 97.9 F 98.3 F Pulse Rate 62 68 64 Respiratory 20 15 16 Rate Blood Pressure 128/82 Blood Pressure 96/60 [Left] O2 Sat by Pulse 97 96 95 Oximetry 10/16/18 10/16/18 10/16/18 02:30 03:00 04:05 Temperature Pulse Rate Respiratory 16 16 Rate Blood Pressure 113/62 Blood Pressure [Left] O2 Sat by Pulse 95 94 Oximetry 10/16/18 10/16/18 04:08 04:30 Temperature Pulse Rate 63 Respiratory 13 Rate Blood Pressure 101/59 Blood Pressure 103/57 [Left] O2 Sat by Pulse 97 99 Oximetry Physical Exam: GENERAL: The patient is well-developed well-nourished. HENT: Normocephalic. Atraumatic. Patient has moist mucous membranes. EYES: Extraocular motions are intact. Pupils equal reactive to light bilaterally. NECK: Supple. Trachea is midline. CHEST/LUNGS: Clear to auscultation. There is no respiratory distress noted. HEART/CARDIOVASCULAR: Regular. There is no tachycardia. There is no murmur. ABDOMEN: Abdomen is soft. There is some generalized abdominal tenderness to palpation. Patient has normal bowel sounds. There is mild abdominal distention. SKIN: Skin is warm and dry. NEURO: The patient is awake, alert, and oriented. The patient is cooperative. The patient has no focal neurologic deficits. The patient has normal speech. MUSCULOSKELETAL: There is no tenderness or deformity. There is no limitation range of motion. There is no evidence of acute injury. ED Course Vital Signs 10/16/18 10/16/18 10/16/18 01:54 02:24 02:25 Temperature 97.9 F 98.3 F Pulse Rate 62 68 64 Respiratory 20 15 16 Rate Blood Pressure 128/82 Blood Pressure 96/60 [Left] O2 Sat by Pulse 97 96 95 Oximetry 10/16/18 10/16/18 10/16/18 02:30 03:00 04:05 Temperature Pulse Rate Respiratory 16 16 Rate Blood Pressure 113/62 Blood Pressure [Left] O2 Sat by Pulse 95 94 Oximetry 10/16/18 10/16/18 04:08 04:30 Temperature Pulse Rate 63 Respiratory 13 Rate Blood Pressure 101/59 Blood Pressure 103/57 [Left] O2 Sat by Pulse 97 99 Oximetry - Consultations Consultation #1: 10/16/18 05:14 I spoke with the general surgeon preparation supervisor, Dr. Owen, regarding the patient's presentation, history, and the CT findings of an umbilical hernia and small bowel obstruction. Dr. Owen has graciously agreed to see the patient has a consult and has asked for the patient to be admitted to the hospitalist service. ED Medical Decision Making - Lab Data Result diagrams: 10/16/18 02:06 10/16/18 02:06 - Radiology Data Radiology results: report reviewed ABDOMEN 1 VIEW(S) INDICATION / CLINICAL INFORMATION: abd pain. Pain radiates to back when walking COMPARISON: None available. FINDINGS: TUBES / LINES: None. BOWEL GAS PATTERN: There are dilated gas containing loops of small bowel in the left upper abdomen with accompanying air-fluid levels. Normal colonic bowel gas pattern is noted. FREE AIR / EXTRALUMINAL GAS: None seen. ADDITIONAL FINDINGS: No significant additional findings. IMPRESSION: 1. Abnormal bowel gas pattern. Dilated small bowel loops with air-fluid levels are present and suspicious for bowel obstruction. CT abdomen pelvis wo con INDICATION / CLINICAL INFORMATION: abd pain, MODE. TECHNIQUE: Axial CT imaging of the abdomen and pelvis was performed without IV contrast. Coronal and sagittal reformatted imaging obtained and reviewed. All CT scans at this location are performed using CT dose reduction for ALARA by means of automated exposure control. COMPARISON: Prior CT abdomen, 06/16/2015 FINDINGS: CT abdomen without contrast demonstrates grossly normal appearance of the liver, spleen, pancreas, kidneys, and adrenal glands. Multiple small gallstones are present within the gallbladder. The gallbladder does not appear to be acutely inflamed or abnormally distended. CT pelvis demonstrates mild sigmoid diverticulosis without evidence of diverticulitis. Normal appendix is present. There are several loops of mildly dilated fluid-filled small bowel in the central abdomen. There is a small umbilical hernia containing a small segment of small bowel. This is the cause of the small bowel obstruction. Umbilical hernia was present on the prior CT scan. However, at that time the hernia did not contain any bowel. No free fluid or free air noted. Images through the lung bases show mildly aneurysmal descending thoracic aorta with maximum transverse diameter of 5.[address] demonstrated aortic dissection. No acute pulmonary or pleural disease noted. IMPRESSION: 1. Umbilical hernia containing a small knuckle of small bowel. This is causing a small bowel obstruction. This report was called to Dr. Angulo at 0340 hours 2. Cholelithiasis without CT evidence of acute cholecystitis. 3. 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 Patient has known history of aortic dissection. - Medical Decision Making Patient presents to the emergency department with a complaint of some abdominal pain. He has a history of umbilical hernia in the past as well as some history of intestinal resection and anastomosis. His labs have mostly been unremarkable except for acute renal failure/insufficiency with a creatinine of 2.2 and a GFR of about 40. Abdominal x-ray showed some dilated bowel gas concerning for bowel obstruction. A CT scan of the abdomen and pelvis without contrast was done that shows an umbilical hernia containing a small amount of small bowel and causing a small bowel obstruction. Gen. surgery has been contacted and consult it. The patient has been accepted for admission by the hospitalist, Dr. Elise. - Differential Diagnosis small bowel obstruction, pancreatitis, colitis, cholecystitis, appendicitis Critical Care Time: Yes Critical care time in (mins) excluding proc time.: 35 Critical care attestation.: If time is entered above; I have spent that time in minutes in the direct care of this critically ill patient, excluding procedure time. Critical care time was spent on this patient and during his initial evaluation, multiple re- evaluations, ordering and interpretation of labs and imaging, discussion with the radiologist, discussion with the general surgeon. Critical Care Time: 35 minutes ED Disposition Clinical Impression: Small bowel obstruction Abdominal pain Qualifiers: Abdominal location: generalized Qualified Code(s): R10.84 - Generalized abdominal pain Umbilical hernia Qualifiers: Obstruction and gangrene presence: with obstruction but without gangrene Qualified Code(s): K42.0 - Umbilical hernia with obstruction, without gangrene Disposition: 09 OP ADMIT IP TO THIS HOSP Is pt being admited?: Yes Condition: Serious Referrals: ALLI SANTOYO MD [Primary Care Provider] - 3-5 Days Time of Disposition: 05:17
[2018-10-16] MEDS ORDERED: MORPHINE IV PRN (05:16)
[2018-10-16] MEDS ORDERED: SODIUM CHLORIDE FLUSH SYRINGE 10 ML IV PRN (05:16)
[2018-10-16] MEDS ORDERED: TYLENOL PO PRN (05:16)
[2018-10-16] MEDS ORDERED: ZOFRAN IV PRN (05:16)
[2018-10-16] MEDS ORDERED: PROVENTIL IH PRN (05:20)
[2018-10-16] MEDS ORDERED: APRESOLINE IV PRN (05:22)
--- NOTE | 2018-10-16 05:29 | History and Physical Report ---
<LUKAS WADDELL - Last Filed: 10/16/18 05:57> History of Present Illness Date of examination: 10/16/18 Date of admission: 10/16/2018 Chief complaint: Diffuse abdominal pain History of present illness: 48-year-old -Burmese male with history of anxiety, hypertension, heart aneurysm s/p mechanical valve replacement, hernia repair with intestinal resection and anastomosis who presents to [facility] ED with complaints of diffuse abdominal pain. Patient states that he's been experiencing abdominal pain with radiation to the back with ambulation for the past day. He describes his pain as sharp and nagging, and rates it 10/10. He gets minimal relief with pain medication. Patient states he underwent bowel resection and anastomosis at [facility] in June/2015 for previous hernia complicated by obstruction. Denies: n/v/d, fever, headache, melena, hematochezia, or hemoptysis Past History Past Medical History: hypertension, other (anxiety, heart valve aneurysm, ) Past Surgical History: valve replacement (mechanical valve), hernia repair, Other (intestinal resection (06/2015) and anastomosis, spinal fusion) Social history: , Lives alone, smoking (smokes one cigar per month) Family history: no significant family history Medications and Allergies Allergies Allergy/AdvReac Type Severity Reaction Status Date / Time morphine Allergy Rash Verified 08/09/16 19:36 Nitrate Analogues AdvReac Unknown Verified 08/09/16 19:36 tramadol AdvReac Unknown Verified 08/09/16 19:36 Home Medications Medication Instructions Recorded Confirmed Last Taken Type Lisinopril [Zestril TAB] 40 mg PO QDAY #30 tablet 08/11/16 10/16/18 Unknown Rx Aspirin 325 mg PO QDAY 10/16/18 10/16/18 Unknown History Butalb/Acetaminophen/Caffeine 1 cap PO Q6HR PRN 10/16/18 10/16/18 Unknown History [Fioricet 50-300-40 mg CAP] Fluticasone Propionate [Flovent 50 mcg QDAY 10/16/18 10/16/18 Unknown History Diskus] Metoprolol Xl [Metoprolol 100 mg PO BID 10/16/18 10/16/18 Unknown History SUCCINATE ER TAB] Sucralfate [Carafate] 1 gm PO Q6HR 10/16/18 10/16/18 Unknown History Triamterene/Hydrochlorothiazid 1 each PO QDAY 10/16/18 10/16/18 Unknown History [Triamterene-Hctz 37.5-25 mg Cp] Active Meds: Active Medications Acetaminophen (Tylenol) 650 mg PO Q4H PRN PRN Reason: Pain MILD(1-3)/Fever >100.5/YAÑEZ Albuterol (Proventil) 2.5 mg IH Q4HRT PRN PRN Reason: Shortness Of Breath Heparin Sodium (Porcine) (Heparin) 5,000 unit SUB-Q Q12HR STEPHANIE Hydralazine HCl (Apresoline) 10 mg IV Q4HR PRN PRN Reason: Blood Pressure Hydromorphone HCl (Dilaudid) 0.5 mg IV Q3H PRN PRN Reason: Pain , Severe (7-10) Stop: 10/17/18 23:59 Sodium Chloride (Nacl 0.9% 1000 Ml) 1,000 mls @ 75 mls/hr IV DIRECT STEPHANIE Morphine Sulfate (Morphine) 2 mg IV Q4H PRN PRN Reason: Pain, Moderate (4-6) Stop: 10/17/18 23:59 Ondansetron HCl (Zofran) 4 mg IV Q8H PRN PRN Reason: Nausea And Vomiting Sodium Chloride (Sodium Chloride Flush Syringe 10 Ml) 10 ml IV BID STEPHANIE Sodium Chloride (Sodium Chloride Flush Syringe 10 Ml) 10 ml IV PRN PRN PRN Reason: LINE FLUSH Review of Systems All systems: negative (reviewed and no additional medical complaints except as noted below) Gastrointestinal: abdominal pain (that radiates to back with ambulation) Exam - Physical Exam Narrative exam: Physical exam General appearance: Present: Mild distress, alert and oriented 3, well developed, well nourished, adult -Burmese - EENT Eyes: Present: PERRL, EOM intact ENT: hearing intact, normal dentition - Neck Neck: Present: supple, normal ROM - Respiratory Respiratory effort: Non-labored Respiratory: Clear throughout - Cardiovascular Heart rate: 62 (bpm) Rhythm: regular Heart Sounds: Present: S1 & S2. Absent: rub, click - Extremities Extremities: no ischemia, pulses intact, ) - Peripheral Assessment Peripheral Pulses: within normal limits - Abdominal General gastrointestinal: soft, non-tender, normal bowel sounds - Integumentary Integumentary: Present: warm, dry - Musculoskeletal Musculoskeletal: Normal gait -Neurological Neurological: CN II-XII grossly intact - Psychiatric Psychiatric: cooperative - Constitutional Vitals: Temp Pulse Resp BP Pulse Ox 98.3 F 63 18 103/57 99 10/16/18 02:25 10/16/18 04:30 10/16/18 05:05 10/16/18 04:30 10/16/18 04:30 Results - Labs CBC & Chem 7: 10/16/18 02:06 10/16/18 02:06 Labs: Laboratory Last Values WBC 11.9 K/mm3 (4.5-11.0) H 10/16/18 02:06 RBC 4.46 M/mm3 (3.65-5.03) 10/16/18 02:06 Hgb 14.5 gm/dl (11.8-15.2) 10/16/18 02:06 Hct 43.4 % (35.5-45.6) 10/16/18 02:06 MCV 97 fl (84-94) H 10/16/18 02:06 MCH 33 pg (28-32) H 10/16/18 02:06 MCHC 33 % (32-34) 10/16/18 02:06 RDW 12.9 % (13.2-15.2) L 10/16/18 02:06 Plt Count 228 K/mm3 (140-440) 10/16/18 02:06 Lymph % (Auto) 28.6 % (13.4-35.0) 10/16/18 02:06 Stewart % (Auto) 8.7 % (0.0-7.3) H 10/16/18 02:06 Eos % (Auto) 1.7 % (0.0-4.3) 10/16/18 02:06 Baso % (Auto) 0.6 % (0.0-1.8) 10/16/18 02:06 Lymph # 3.4 K/mm3 (1.2-5.4) 10/16/18 02:06 Stewart # 1.0 K/mm3 (0.0-0.8) H 10/16/18 02:06 Eos # 0.2 K/mm3 (0.0-0.4) 10/16/18 02:06 Baso # 0.1 K/mm3 (0.0-0.1) 10/16/18 02:06 Seg Neutrophils % 60.4 % (40.0-70.0) 10/16/18 02:06 Seg Neutrophils # 7.2 K/mm3 (1.8-7.7) 10/16/18 02:06 Sodium 141 mmol/L (137-145) 10/16/18 02:06 Potassium 4.3 mmol/L (3.6-5.0) 10/16/18 02:06 Chloride 103.7 mmol/L (98-107) 10/16/18 02:06 Carbon Dioxide 25 mmol/L (22-30) 10/16/18 02:06 17 mmol/L 10/16/18 02:06 BUN 21 mg/dL (9-20) H 10/16/18 02:06 2.2 mg/dL (0.8-1.5) H 10/16/18 02:06 Estimated GFR 39 ml/min 10/16/18 02:06 10 % 10/16/18 02:06 Glucose 107 mg/dL (75-100) H 10/16/18 02:06 Calcium 9.6 mg/dL (8.4-10.2) 10/16/18 02:06 0.60 mg/dL (0.1-1.2) 10/16/18 02:06 AST 14 units/L (5-40) 10/16/18 02:06 ALT 12 units/L (7-56) 10/16/18 02:06 71 units/L (35-129) 10/16/18 02:06 8.1 g/dL (6.3-8.2) 10/16/18 02:06 4.2 g/dL (3.9-5) 10/16/18 02:06 1.1 % 10/16/18 02:06 31 units/L (13-60) 10/16/18 02:06 [place] (Yellow) 10/16/18 02:04 Slightly-cloudy (Clear) 10/16/18 02:04 5.0 (5.0-7.0) 10/16/18 02:04 Ur Specific [place] 1.029 (1.003-1.030) 10/16/18 02:04 <15 mg/dl mg/dL (Negative) 10/16/18 02:04 Neg mg/dL (Negative) 10/16/18 02:04 Tr mg/dL (Negative) 10/16/18 02:04 Neg (Negative) 10/16/18 02:04 Neg (Negative) 10/16/18 02:04 Neg (Negative) 10/16/18 02:04 2.0 mg/dL (<2.0) 10/16/18 02:04 Ur Leukocyte Esterase Neg (Negative) 10/16/18 02:04 3.0 /HPF (0.0-6.0) 10/16/18 02:04 3.0 /HPF (0.0-6.0) 10/16/18 02:04 U Epithel Cells (Auto) 2.0 /HPF (0-13.0) 10/16/18 02:04 Hyaline Casts 52 /LPF 10/16/18 02:04 2+ /HPF 10/16/18 02:04 - Imaging and Cardiology Imaging and Cardiology: CT Abd/ Pelvis: IMPRESSION: 1. Umbilical hernia containing a small knuckle of small bowel. This is causing a small bowel obstruction. This report was called to Dr. Angulo at 0340 hours 2. Cholelithiasis without CT evidence of acute cholecystitis. 3. 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 Patient has known history of aortic dissection. Abd XR IMPRESSION: 1. Abnormal bowel gas pattern. Dilated small bowel loops with air-fluid levels are present and suspicious for bowel obstruction. Assessment and Plan Assessment and plan: 48-year-old -Burmese male with history of anxiety, hypertension, heart aneurysm s/p mechanical valve replacement, hernia repair with intestinal resection and anastomosis who presents to [facility] ED with complaints of diffuse abdominal pain. Abdominal x-ray was suspicious for bowel obstruction. CT abdomen and pelvis showed umbilical hernia containing a small knuckle of small bowel causing a small bowel obstruction; Cholelithiasis without CT evidence of acute cholecystitis. Dr. Owen was consulted. Will admit to Surgical floor. 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 Owen (General Surgery) following Creatinine on this admission 2.2, GFR 39, patient creatinine in July/2016 was 1.0 with GFR>60 Monitor renal function Avoid nephrotoxic agents Nephrology consulted Gentle hydration with NS @ 75ml/hr Monitor WBC WBC 11.9, likely due to inflammatory response, no S/S of infection we'll hold off on antibiotic treatment for now Monitor BP IV hydralazine when necessary Will resume home antihypertensive meds when patient is no longer nothing by mouth DVT PPX on heparin and SCD's Advance Directives: No VTE prophylaxis?: Chemical Plan of care discussed with patient/family: Yes <JOSR MCDONALD - Last Filed: 10/16/18 06:23> Medications and Allergies Active Meds: Active Medications Albuterol (Proventil) 2.5 mg IH Q4HRT PRN PRN Reason: Shortness Of Breath Heparin Sodium (Porcine) (Heparin) 5,000 unit SUB-Q Q12HR STEPHANIE Hydralazine HCl (Apresoline) 10 mg IV Q4H PRN PRN Reason: Blood Pressure Hydromorphone HCl (Dilaudid) 0.5 mg IV Q3H PRN PRN Reason: Pain , Severe (7-10) Stop: 10/17/18 23:59 Sodium Chloride (Nacl 0.9% 1000 Ml) 1,000 mls @ 75 mls/hr IV DIRECT STEPHANIE Morphine Sulfate (Morphine) 2 mg IV Q4H PRN PRN Reason: Pain, Moderate (4-6) Stop: 10/17/18 23:59 Ondansetron HCl (Zofran) 4 mg IV Q8H PRN PRN Reason: Nausea And Vomiting Sodium Chloride (Sodium Chloride Flush Syringe 10 Ml) 10 ml IV BID STEPHANIE Sodium Chloride (Sodium Chloride Flush Syringe 10 Ml) 10 ml IV PRN PRN PRN Reason: LINE FLUSH Exam - Constitutional Vitals: Temp Pulse Resp BP Pulse Ox 98.3 F 63 18 103/57 99 10/16/18 02:25 10/16/18 04:30 10/16/18 05:05 10/16/18 04:30 10/16/18 04:30 Results - Labs CBC & Chem 7: 10/16/18 02:06 10/16/18 02:06 Labs: Laboratory Last Values WBC 11.9 K/mm3 (4.5-11.0) H 10/16/18 02:06 RBC 4.46 M/mm3 (3.65-5.03) 10/16/18 02:06 Hgb 14.5 gm/dl (11.8-15.2) 10/16/18 02:06 Hct 43.4 % (35.5-45.6) 10/16/18 02:06 MCV 97 fl (84-94) H 10/16/18 02:06 MCH 33 pg (28-32) H 10/16/18 02:06 MCHC 33 % (32-34) 10/16/18 02:06 RDW 12.9 % (13.2-15.2) L 10/16/18 02:06 Plt Count 228 K/mm3 (140-440) 10/16/18 02:06 Lymph % (Auto) 28.6 % (13.4-35.0) 10/16/18 02:06 Stewart % (Auto) 8.7 % (0.0-7.3) H 10/16/18 02:06 Eos % (Auto) 1.7 % (0.0-4.3) 10/16/18 02:06 Baso % (Auto) 0.6 % (0.0-1.8) 10/16/18 02:06 Lymph # 3.4 K/mm3 (1.2-5.4) 10/16/18 02:06 Stewart # 1.0 K/mm3 (0.0-0.8) H 10/16/18 02:06 Eos # 0.2 K/mm3 (0.0-0.4) 10/16/18 02:06 Baso # 0.1 K/mm3 (0.0-0.1) 10/16/18 02:06 Seg Neutrophils % 60.4 % (40.0-70.0) 10/16/18 02:06 Seg Neutrophils # 7.2 K/mm3 (1.8-7.7) 10/16/18 02:06 Sodium 141 mmol/L (137-145) 10/16/18 02:06 Potassium 4.3 mmol/L (3.6-5.0) 10/16/18 02:06 Chloride 103.7 mmol/L (98-107) 10/16/18 02:06 Carbon Dioxide 25 mmol/L (22-30) 10/16/18 02:06 17 mmol/L 10/16/18 02:06 BUN 21 mg/dL (9-20) H 10/16/18 02:06 2.2 mg/dL (0.8-1.5) H 10/16/18 02:06 Estimated GFR 39 ml/min 10/16/18 02:06 10 % 10/16/18 02:06 Glucose 107 mg/dL (75-100) H 10/16/18 02:06 Calcium 9.6 mg/dL (8.4-10.2) 10/16/18 02:06 0.60 mg/dL (0.1-1.2) 10/16/18 02:06 AST 14 units/L (5-40) 10/16/18 02:06 ALT 12 units/L (7-56) 10/16/18 02:06 71 units/L (35-129) 10/16/18 02:06 8.1 g/dL (6.3-8.2) 10/16/18 02:06 4.2 g/dL (3.9-5) 10/16/18 02:06 1.1 % 10/16/18 02:06 31 units/L (13-60) 10/16/18 02:06 [place] (Yellow) 10/16/18 02:04 Slightly-cloudy (Clear) 10/16/18 02:04 5.0 (5.0-7.0) 10/16/18 02:04 Ur Specific [place] 1.029 (1.003-1.030) 10/16/18 02:04 <15 mg/dl mg/dL (Negative) 10/16/18 02:04 Neg mg/dL (Negative) 10/16/18 02:04 Tr mg/dL (Negative) 10/16/18 02:04 Neg (Negative) 10/16/18 02:04 Neg (Negative) 10/16/18 02:04 Neg (Negative) 10/16/18 02:04 2.0 mg/dL (<2.0) 10/16/18 02:04 Ur Leukocyte Esterase Neg (Negative) 10/16/18 02:04 3.0 /HPF (0.0-6.0) 10/16/18 02:04 3.0 /HPF (0.0-6.0) 10/16/18 02:04 U Epithel Cells (Auto) 2.0 /HPF (0-13.0) 10/16/18 02:04 Hyaline Casts 52 /LPF 10/16/18 02:04 2+ /HPF 10/16/18 02:04 Assessment and Plan Assessment and plan: 46-year-old man with a history of hypertension, aortic dissection comes emergency room with complaints of constant abdominal pain in the epigastric area that started yesterday. Ct of abdomen shows small bowel obstruction secondary to umbilical hernia. s/p hernia repair in 2016. Also noted to have ARF. Agree with plan as discussed above, except increase fluid to 150/h. patient seen and examine, d/w [employer]
[2018-10-16] MEDS: DILAUDID IV PRN ×2 (06:25→13:25)
[2018-10-16] MEDS: NACL 0.9% 1000 ML 1,000 ML IV SCH ×2 (06:30→22:14)
--- NOTE | 2018-10-16 09:20 | Event Note ---
Date: 10/16/18 48-year-old male was admitted earlier this morning for the management of intestinal obstruction. Patient said pain is getting better and he passed gas. General surgery consult placed. Continue management as outlined per H&P.
[2018-10-16] MEDS ORDERED: CATAPRES-TTS PATCH TD SCH (10:00)
--- NOTE | 2018-10-16 10:21 | Consultation ---
History of Present Illness Consult date: 10/16/18 Reason for consult: hernia Requesting physician: CINTHIA SINGH Chief complaint: abdominal pain - History of present illness History of present illness: 48yo M presented to the emergency room with acute onset of abdominal pain since 4 PM yesterday. His history is significant for having a prior exploratory laparotomy for a small bowel obstruction. In 2014, he had bowel that got stuck in a midline hernia that required an exploratory laparotomy. This was done at [facility]. A small portion of intestine was resected and the hernia was fixed. Mesh was not used. ER evaluation with a CT scan was suggestive of a small bowel obstruction secondary to herniated bowel through a midline defect. Patient reports that his pain has essentially resolved. Denies any nausea or vomiting. Does not have any pain or swelling at the umbilicus. Patient has been passing gas and had a bowel movement. He would like something to eat. Past History Past Medical History: hypertension, other (anxiety, heart valve aneurysm, ) Past Surgical History: valve replacement (mechanical valve - no anticoagulation required per the patient.), hernia repair (2014 - [facility] - no mesh was used), Other (intestinal resection (06/2015) and anastomosis, spinal fusion) Social history: , Lives alone, smoking (smokes one cigar per month) Family history: no significant family history Medications and Allergies Allergies Allergy/AdvReac Type Severity Reaction Status Date / Time morphine Allergy Rash Verified 08/09/16 19:36 Nitrate Analogues AdvReac Unknown Verified 08/09/16 19:36 tramadol AdvReac Unknown Verified 08/09/16 19:36 Home Medications Medication Instructions Recorded Confirmed Last Taken Type Lisinopril [Zestril TAB] 40 mg PO QDAY #30 tablet 08/11/16 10/16/18 Unknown Rx Aspirin 325 mg PO QDAY 10/16/18 10/16/18 Unknown History Butalb/Acetaminophen/Caffeine 1 cap PO Q6HR PRN 10/16/18 10/16/18 Unknown History [Fioricet 50-300-40 mg CAP] Fluticasone Propionate [Flovent 50 mcg QDAY 10/16/18 10/16/18 Unknown History Diskus] Metoprolol Xl [Metoprolol 100 mg PO BID 10/16/18 10/16/18 Unknown History SUCCINATE ER TAB] Sucralfate [Carafate] 1 gm PO Q6HR 10/16/18 10/16/18 Unknown History Triamterene/Hydrochlorothiazid 1 each PO QDAY 10/16/18 10/16/18 Unknown History [Triamterene-Hctz 37.5-25 mg Cp] Active Meds: Active Medications Albuterol (Proventil) 2.5 mg IH Q4HRT PRN PRN Reason: Shortness Of Breath Heparin Sodium (Porcine) (Heparin) 5,000 unit SUB-Q Q12HR STEPHANIE Hydralazine HCl (Apresoline) 10 mg IV Q4H PRN PRN Reason: Blood Pressure Hydromorphone HCl (Dilaudid) 0.5 mg IV Q3H PRN PRN Reason: Pain , Severe (7-10) Stop: 10/17/18 23:59 Last Admin: 10/16/18 06:25 Dose: 0.5 mg Documented by: Sodium Chloride (Nacl 0.9% 1000 Ml) 1,000 mls @ 150 mls/hr IV DIRECT STEPHANIE Last Admin: 10/16/18 06:30 Dose: 150 mls/hr Documented by: Morphine Sulfate (Morphine) 2 mg IV Q4H PRN PRN Reason: Pain, Moderate (4-6) Stop: 10/17/18 23:59 Ondansetron HCl (Zofran) 4 mg IV Q8H PRN PRN Reason: Nausea And Vomiting Sodium Chloride (Sodium Chloride Flush Syringe 10 Ml) 10 ml IV BID STEPHANIE Sodium Chloride (Sodium Chloride Flush Syringe 10 Ml) 10 ml IV PRN PRN PRN Reason: LINE FLUSH Review of Systems - Constitutional no fever, no chills, no chronic pain - Cardiovascular no chest pain, no shortness of breath - Respiratory no cough - Gastrointestinal abdominal pain, no nausea, no vomiting, no BRBPR - Muskuloskeletal no low back pain Exam Vital Signs Temp Pulse Resp BP Pulse Ox 97.9 F 62 20 128/82 97 10/16/18 01:54 10/16/18 01:54 10/16/18 01:54 10/16/18 01:54 10/16/18 01:54 - General physical appearance Positive: no distress, no pain, other (pleasant. overweight) - Eyes Positive: normal occular movement - Respiratory Positive: normal expansion, normal respiratory effort, clear to auscultation - Cardiovascular Rhythm: regular - Abdomen Abdomen: Present: soft, surgical scars (well healed midline scar). Absent: tender, distended, masses, rebound, guarding, rigid Hernia: incisional (fascial defect palpable ~ 1.5cm. No contents) - Integumentary no rash, no growths, no abnormal pigmentation - Neurologic Neurologic: alert and oriented to time, place and person, motor strength and sensation are grossly intact - Psychiatric Psychiatric: appropriate mood/affect, intact judgment & insight, cooperative Results - Labs 10/16/18 02:06 10/16/18 02:06 Abnormal lab results 10/16/18 10/16/18 Range/Units 02:06 02:06 WBC 11.9 H (4.5-11.0) K/mm3 MCV 97 H (84-94) fl MCH 33 H (28-32) pg RDW 12.9 L (13.2-15.2) % Dukes % (Auto) 8.7 H (0.0-7.3) % [place]ukes # 1.0 H (0.0-0.8) K/mm3 BUN 21 H (9-20) mg/dL Creatinine 2.2 H (0.8-1.5) mg/dL Glucose 107 H (75-100) mg/dL Diabetes panel 10/16/18 Range/Units 02:06 Sodium 141 (137-145) mmol/L Potassium 4.3 (3.6-5.0) mmol/L Chloride 103.7 (98-107) mmol/L Carbon Dioxide 25 (22-30) mmol/L BUN 21 H (9-20) mg/dL Creatinine 2.2 H (0.8-1.5) mg/dL Glucose 107 H (75-100) mg/dL Calcium 9.6 (8.4-10.2) mg/dL AST 14 (5-40) units/L ALT 12 (7-56) units/L Alkaline Phosphatase 71 (35-129) units/L Total Protein 8.1 (6.3-8.2) g/dL Albumin 4.2 (3.9-5) g/dL Calcium panel 10/16/18 Range/Units 02:06 Calcium 9.6 (8.4-10.2) mg/dL Albumin 4.2 (3.9-5) g/dL Pituitary panel 10/16/18 Range/Units 02:06 Sodium 141 (137-145) mmol/L Potassium 4.3 (3.6-5.0) mmol/L Chloride 103.7 (98-107) mmol/L Carbon Dioxide 25 (22-30) mmol/L BUN 21 H (9-20) mg/dL Creatinine 2.2 H (0.8-1.5) mg/dL Glucose 107 H (75-100) mg/dL Calcium 9.6 (8.4-10.2) mg/dL Adrenal panel 10/16/18 Range/Units 02:06 Sodium 141 (137-145) mmol/L Potassium 4.3 (3.6-5.0) mmol/L Chloride 103.7 (98-107) mmol/L Carbon Dioxide 25 (22-30) mmol/L BUN 21 H (9-20) mg/dL Creatinine 2.2 H (0.8-1.5) mg/dL Glucose 107 H (75-100) mg/dL Calcium 9.6 (8.4-10.2) mg/dL Total Bilirubin 0.60 (0.1-1.2) mg/dL AST 14 (5-40) units/L ALT 12 (7-56) units/L Alkaline Phosphatase 71 (35-129) units/L Total Protein 8.1 (6.3-8.2) g/dL Albumin 4.2 (3.9-5) g/dL - Imaging CT scan - abdomen: report reviewed, image reviewed CT scan - pelvis: report reviewed, image reviewed Assessment and Plan - Patient Problems (1) Incisional hernia with obstruction, without gangrene Current Visit: Yes Status: Acute Plan to address problem: Pt stable. Reducible incisional hernia at umbilicus. No abdominal pain. No other symptoms. Ok for discharge and f/u in the office. Will schedule elective surgery in the office. Will advance diet. Please call with questions. Time=30min
--- NOTE | 2018-10-16 11:06 | Consultation ---
History of Present Illness - History of Present Illness Thank you for the consultation ! Patient was evaluated today My assessment and plan are as follows Renal failure current creatinine around 2.2 2017 patient's creatinine was 1.0, CAT scan of the abdomen and pelvis obtained shows normal-appearing kidneys no obstruction Maintain hydration follow-up on renal function obtain renal imaging as well as necessary labs No indication for renal replacement therapy avoid any nephrotoxic agent, radiocontrast, GABRIELLA inhibitor or angiotensin receptor maria l or diuretic Clinically patient appears to be prerenal, he was taking triamterene hydrochlorothiazide as well as lisinopril in the outpatient setting Does not recall having any history of renal failure but does have risk factors Will order workup for renal failure at this point, Patient has been admitted here with abdominal pain poor appetite History of mechanical valve, hypertension, anxiety, hernia repair myocardial infarction Renal prognosis remains guarded at this time Had a detailed discussion with patient about the plan of care from renal standpoint. All questions were answered labs and pertinent imaging findings were explained to the patient and simple Icelandic. Prognosis: Guarded We'll continue to follow and make recommendation from renal standpoint Thank you for the consultation. History of presenting illness; Patient is a 48-year-old the male who has been admitted here with abdominal pain and currently undergoing workup. CAT scan did not show any evidence of obstructive uropathy admission creatinine was 2.2 appetite has been somewhat poor patient was taking triamterene hydrochlorothiazide as well as lisinopril. No history of any renal failure per patient, No history of any lupus hepatitis or paraproteinemias Past medical history significant for: Reviewed from which a Current allergies: Reviewed from the chart Home medication/present medication: Reviewed Social history: Reviewed from the current chart Family history: Reviewed from the current chart Review of system is positive for; abdominal pain poor appetite All other review of systems were negative Physical examination Vitals: Reviewed from this admission Gen.: No acute distress HEENT: Normocephalic/atraumatic skull oral mucosa moist minimal pallor no icterus or uremic order Neck: Supple without any thyromegaly nodular mass or JVD Chest: Clear to auscultation anteriorly few faint basilar crackles otherwise unremarkable Heart: Regular rate and rhythm S1 and S2 heard no S3-S4 no pericardial rub Abdomen: Soft nontender no guarding rigidity rebound organomegaly no suprapubic masses, no CVA tenderness no renal bruit Back: No CVA tenderness Derm: No petechial rashes dry skin Extremity: Pulses palpable no peripheral cyanosis, 1+ edema dry skin Neurological: Alert awake follows commands Psychiatric: No agitation and aggression Labs and x-rays: Were reviewed from this admission Past History Past Medical History: hypertension, other (anxiety, heart valve aneurysm, ) Past Surgical History: valve replacement (mechanical valve), hernia repair, Other (intestinal resection (06/2015) and anastomosis, spinal fusion) Social history: , Lives alone, smoking (smokes one cigar per month) Family history: no significant family history Medications and Allergies Allergies Allergy/AdvReac Type Severity Reaction Status Date / Time morphine Allergy Rash Verified 08/09/16 19:36 Nitrate Analogues AdvReac Unknown Verified 08/09/16 19:36 tramadol AdvReac Unknown Verified 08/09/16 19:36 Home Medications Medication Instructions Recorded Confirmed Last Taken Type Lisinopril [Zestril TAB] 40 mg PO QDAY #30 tablet 08/11/16 10/16/18 Unknown Rx Aspirin 325 mg PO QDAY 10/16/18 10/16/18 Unknown History Butalb/Acetaminophen/Caffeine 1 cap PO Q6HR PRN 10/16/18 10/16/18 Unknown History [Fioricet 50-300-40 mg CAP] Fluticasone Propionate [Flovent 50 mcg QDAY 10/16/18 10/16/18 Unknown History Diskus] Metoprolol Xl [Metoprolol 100 mg PO BID 10/16/18 10/16/18 Unknown History SUCCINATE ER TAB] Sucralfate [Carafate] 1 gm PO Q6HR 10/16/18 10/16/18 Unknown History Triamterene/Hydrochlorothiazid 1 each PO QDAY 10/16/18 10/16/18 Unknown History [Triamterene-Hctz 37.5-25 mg Cp] Active Meds: Active Medications Albuterol (Proventil) 2.5 mg IH Q4HRT PRN PRN Reason: Shortness Of Breath Heparin Sodium (Porcine) (Heparin) 5,000 unit SUB-Q Q12HR STEPHANIE Hydralazine HCl (Apresoline) 10 mg IV Q4H PRN PRN Reason: Blood Pressure Hydromorphone HCl (Dilaudid) 0.5 mg IV Q3H PRN PRN Reason: Pain , Severe (7-10) Stop: 10/17/18 23:59 Last Admin: 10/16/18 06:25 Dose: 0.5 mg Documented by: Sodium Chloride (Nacl 0.9% 1000 Ml) 1,000 mls @ 150 mls/hr IV DIRECT STEPHANIE Last Admin: 10/16/18 06:30 Dose: 150 mls/hr Documented by: Morphine Sulfate (Morphine) 2 mg IV Q4H PRN PRN Reason: Pain, Moderate (4-6) Stop: 10/17/18 23:59 Ondansetron HCl (Zofran) 4 mg IV Q8H PRN PRN Reason: Nausea And Vomiting Sodium Chloride (Sodium Chloride Flush Syringe 10 Ml) 10 ml IV BID STEPHANIE Sodium Chloride (Sodium Chloride Flush Syringe 10 Ml) 10 ml IV PRN PRN PRN Reason: LINE FLUSH Exam - Vital Signs Vital signs: Vital Signs Temp Pulse Resp BP Pulse Ox 97.9 F 62 20 128/82 97 10/16/18 01:54 10/16/18 01:54 10/16/18 01:54 10/16/18 01:54 10/16/18 01:54 Results - Lab Results 10/16/18 02:06 10/16/18 02:06 Most recent lab results Calcium 9.6 mg/dL (8.4-10.2) 10/16/18 02:06
[2018-10-16] MEDS: SODIUM CHLORIDE FLUSH SYRINGE 10 ML IV SCH ×2 (12:36→21:34)
[2018-10-16] MEDS: HEPARIN SUB-Q SCH ×2 (12:36→21:34)
[2018-10-16] MEDS ORDERED: PERCOCET 5/325 PO PRN (17:10)
[2018-10-16] MEDS ORDERED: NON-FORMULARY (Butalb/Acetaminophen/Caffeine [Fioricet 50-300-40 Mg Cap] 1 CAP) PO PRN (17:19)
[2018-10-16] MEDS ORDERED: FIORICET PO PRN (17:28)
[2018-10-16] MEDS ORDERED: NON-FORMULARY (Fluticasone Propionate [Flovent Diskus] 50 MCG) InNostril SCH (17:30)
[2018-10-16] MEDS: CARAFATE PO SCH (17:42)
[2018-10-16] MEDS ORDERED: ASPIRIN PO SCH (18:00)
[2018-10-16] MEDS ORDERED: MILK OF MAGNESIA PO ONE (18:00)
[2018-10-16] MEDS: HALFPRIN EC PO SCH (18:04)
[2018-10-16 18:48] LABS: Bilirubin,Urine NEG (Negative); Blood,Urine NEG (Negative); Color,Urine Yellow (Yellow); Hyaline Casts,Urine 1 /LPF; Mucus,Urine FEW /HPF; Protein,Urine <15 mg/dL mg/dL (Negative); Urobilinogen,Urine < 2.0 mg/dL (<2.0)
[2018-10-16] MEDS: TOPROL XL PO SCH (21:38)
[2018-10-17] MEDS: CARAFATE PO SCH ×2 (00:15→05:18)
[2018-10-17] MEDS: NACL 0.9% 1000 ML 1,000 ML IV SCH (05:18)
[2018-10-17 05:51] VITALS: BP 104/61
[2018-10-17 07:49] LABS: Basophils % (Auto) 0.2 % (0.0-1.8); Eosinophils # (Auto) 0.1 K/mm3 (0.0-0.4); Eosinophils % (Auto) 1.4 % (0.0-4.3); Hematocrit 39.8 % (35.5-45.6); Hemoglobin 13.3 gm/dl (11.8-15.2); Lymphocytes % (Auto) 26.2 % (13.4-35.0); Mean Corpuscular HGB Conc 33 % (32-34); Mean Corpuscular Volume 98 fl (84-94); Monocytes # (Auto) 0.7 K/mm3 (0.0-0.8); Monocytes % (Auto) 8.9 % (0.0-7.3); Platelet Count 187 K/mm3 (140-440); Red Blood Count 4.05 M/mm3 (3.65-5.03); Red Cell Distribution Width 13.1 % (13.2-15.2)
[2018-10-17 08:11] LABS: Calcium 8.6 mg/dL (8.4-10.2)
--- NOTE | 2018-10-17 08:42 | Discharge Summary ---
Providers - Providers Date of Admission: 10/16/18 05:16 Date of discharge: 10/17/18 Attending physician: ANDRE DAMON MD 10/16/18 05:08 Consult to Physician [CONS] Routine Comment: Dr. Angulo spoke with Dr. Owen @ 0506 Consulting Provider: CARIN OWEN Physician Instructions: Reason For Exam: umbilical hernia with SBO 10/16/18 05:23 Consult to Physician [CONS] Routine Comment: Consulting Provider: KURT LAURA Physician Instructions: Reason For Exam: lesli ??CKD3 Primary care physician: ALLI SANTOYO Hospitalization Reason for admission: Intestinal obstruction, Acyte renal failure Condition: Serious Pertinent studies: CT abdomen and pelvis Hospital course: 48-year-old -Wallisian male with history of anxiety, hypertension, heart aneurysm s/p mechanical valve replacement, hernia repair with intestinal resection and anastomosis who presents to [facility] ED with complaints of diffuse abdominal pain. Patient states that he's been experiencing abdominal pain with radiation to the back with ambulation for the past day. He describes his pain as sharp and nagging, and rates it 10/10. He gets minimal relief with pain medication. Patient states he underwent bowel resection and anastomosis at [facility] in June/2015 for previous hernia complicated by obstruction. Patient was admitted to the floor. Abdominal pain subsided, patient has bowel movement and Gen. surgery was consulted and recommend to discharge him and follow him in the office for hernia repair. Patient had acute renal failure likely due to vasomotor nephropathy and was seen by nephrology and recommend to discontinue nephrotoxins including lisinopril. BP actually on the low side of normal. Creatinine is trending down. Patient advised to go to his primary care physician and check his creatinine. F/U with PCP. Disposition: DC-30 STILL A PATIENT - Discharge Diagnoses (1) Abdominal pain Status: Acute Qualifiers: Abdominal location: generalized Qualified Code(s): R10.84 - Generalized abdominal pain (2) Acute renal failure Status: Acute Qualifiers: Acute renal failure type: unspecified Qualified Code(s): N17.9 - Acute kidney failure, unspecified Comment: Acute renal failure due to vasomotor nephropathy. (3) Incisional hernia with obstruction, without gangrene Status: Acute (4) Hypertension Status: Acute Qualifiers: Hypertension type: essential hypertension Qualified Code(s): I10 - Essential (primary) hypertension Core Measure Documentation - Palliative Care Palliative Care/ Comfort Measures: Not Applicable - Core Measures Any of the following diagnoses?: none Exam - Physical Exam Narrative exam: Not in cardiopulmonary distress. The patient is obese Vital signs as documented. Head exam is unremarkable. No scleral icterus . Neck is without jugular venous distension, thyromegaly, or carotid bruits. Lungs are clear to auscultation. Cardiac exam reveals regular rate and Rhythm. First and second heart sounds normal. No murmurs, rubs or gallops. Abdominal exam reveals normal bowel sounds, no masses, no organomegaly and no aortic enlargement. Extremities are nonedematous and both femoral and pedal pulses are normal. 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 No focal weakness. - Constitutional Vitals: Temp Pulse Resp BP Pulse Ox 98.2 F 72 16 104/61 94 10/17/18 05:14 10/17/18 05:14 10/17/18 05:14 10/17/18 05:14 10/17/18 05:14 Plan Activity: no restrictions Weight Bearing Status: Full Weight Bearing Diet: low salt Follow up with: ALLI SANTOYO MD [Primary Care Provider] - 3-5 Days CARIN OWEN MD [Staff Physician] - 10/20/18
[2018-10-17] MEDS: TOPROL XL PO SCH (09:33)
[2018-10-17] MEDS: SODIUM CHLORIDE FLUSH SYRINGE 10 ML IV SCH (09:33)
[2018-10-17] MEDS: HEPARIN SUB-Q SCH (09:33)
[2018-10-17] MEDS: HALFPRIN EC PO SCH (09:33)
[2018-10-17] MEDS ORDERED: FLONASE NS SCH (10:00)
[2018-10-17] MEDS ORDERED: MAXZIDE-25 PO SCH (10:00)
[2018-10-17] MEDS ORDERED: TRIAMTERENE PO SCH (10:00)
[2018-10-17] MEDS ORDERED: HYDROCHLOROTHIAZID PO SCH (10:00)
[2018-10-17] MEDS ORDERED: ZESTRIL PO SCH (10:00)
== END 2018-10-17 11:05 | disposition home or self-care (01) | DRG 393 ==
LOC: SUATTDRO 01:50 → ED 01:50 → 3A 05:16
PROVIDERS: ADMIT Internal Medicine; ATTEND Internal Medicine
DX: K42.0 Umbilical hernia with obstruction, without gangrene (principal); N17.0 Acute kidney failure with tubular necrosis; K43.0 Incisional hernia with obstruction, without gangrene; I10 Essential (primary) hypertension; F41.9 Anxiety disorder, unspecified; K80.20 Calculus of gallbladder without cholecystitis without obstruction; I71.2 Thoracic aortic aneurysm, without rupture; Z88.5 Allergy status to narcotic agent; Z79.82 Long term (current) use of aspirin; Z79.899 Other long term (current) drug therapy; I25.2 Old myocardial infarction
CPT/HCPCS: 36415; 74019; 74176; 80048; 80053; 81001; 82550; 82570; 82962; 83690; 83930; 84300; 84550; 85025; 89050; G0378; J1170; J1644; J7030

== ENCOUNTER 2021-02-15 10:28 | Emergency (ER) | payer MEDICARE ==
[2021-02-15 10:37] VITALS: BP 116/80
--- NOTE | 2021-02-15 11:20 | Emergency Department Report ---
HPI - General Chief Complaint: Back Pain/Injury Time Seen by Provider: 02/15/21 10:43 - HPI HPI: This is a 50-year-old -[place] male presents to the emergency department with a complaint of a 1 month history of upper back pain and some recent shor tness of breath. Patient says that the upper back pain occurs intermittently but recently when it occurs it is very intense, 10 out of 10 on the pain scale. Usually it lasts for about 1 minute or less at a time. The patient was on the way to the bank today, driving in his car, when the back pain reoccurred and was severe so "I did a quick U-turn and came to the hospital." He denies any chest pain, headache, fever, cough, lower extremity swelling. Patient has a past medical history of previous hernia repair with intestinal resection and anastomosis, small bowel obstruction, ascending thoracic aneurysm with repair. Patient follows with a Dr. aJke Alfonso, cardiothoracic surgery at [facility], whom the patient says told him that the previous thoracic aneurysm has "grown a little" and that he may need revisional repair in the near future. 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 Patient says that he took a Flexeril about 6:45 AM for his back pain, and then took a Vistaril around 10 AM for some anxiety. The patient says that when he gets the back pains that he feels like he gets panic attacks. ED Past Medical Hx - Past Medical History Hx Hypertension: Yes Hx Heart Attack/AMI: Yes (AORTIC GUILLERMO-ARCH) Hx Congestive Heart Failure: No Hx Diabetes: No Hx Psychiatric Treatment: Yes (Anxiety) Hx Asthma: No Hx COPD: No Hx HIV: No - Surgical History Hx Open Heart Surgery: No Hx Cholecystectomy: No Hx Appendectomy: No Hx Breast Surgery: No Additional Surgical History: spinal fusion AORTC VALVE REPLACED, HERNIA REPAIR, ABD RESECTION - Social History Smoking Status: Never Smoker - Medications Home Medications: Home Medications Medication Instructions Recorded Confirmed Last Taken Type Aspirin 81 mg PO QDAY 10/16/18 10/16/18 1 Day Ago History ~10/15/18 Butalb/Acetaminophen/Caffeine 1 cap PO Q6HR PRN 10/16/18 10/16/18 1 Day Ago History [Fioricet 50-300-40 mg CAP] ~10/15/18 Fluticasone Propionate [Flovent 50 mcg INNOSTRIL PRN 10/16/18 10/16/18 1 Day Ago History Diskus] ~10/15/18 Metoprolol Xl [Metoprolol 100 mg PO BID 10/16/18 10/16/18 10/15/18 History SUCCINATE ER TAB] Sucralfate [Carafate] 1 gm PO Q6HR 10/16/18 10/16/18 10/15/18 History oxyCODONE /ACETAMINOPHEN [Percocet 1 tab PO Q6HR PRN #10 tablet 02/15/21 Unknown Rx 5/325] ED Review of Systems ROS: Stated complaint: BACK PAIN/DIZZY/SHORT OF BREATH Other details as noted in HPI Comment: All other systems reviewed and negative Constitutional: denies: chills, fever Eyes: denies: eye pain, vision change ENT: denies: ear pain, throat pain Respiratory: shortness of breath. denies: cough Cardiovascular: denies: chest pain, palpitations Gastrointestinal: denies: abdominal pain, vomiting Genitourinary: denies: dysuria, discharge Musculoskeletal: back pain. denies: arthralgia Skin: denies: rash, lesions Neurological: denies: headache, weakness Physical Exam - Physical Exam Vital Signs: Vital Signs 02/15/21 10:35 Temperature 97.9 F Pulse Rate 84 Respiratory 18 Rate Blood Pressure 116/80 [Left] O2 Sat by Pulse 99 Oximetry Physical Exam: GENERAL: The patient is well-developed well-nourished. HENT: Normocephalic. Atraumatic. Patient has moist mucous membranes. EYES: Extraocular motions are intact NECK: Supple. Trachea is midline. CHEST/LUNGS: Clear to auscultation. There is no respiratory distress noted. HEART/CARDIOVASCULAR: Regular. There is no tachycardia. There is no murmur. ABDOMEN: Abdomen is soft, nontender. Patient has normal bowel sounds. SKIN: Skin is warm and dry. NEURO: The patient is awake, alert, and oriented. The patient is cooperative. The patient has no focal neurologic deficits. Normal speech. MUSCULOSKELETAL: There is no tenderness or deformity. There is no limitation range of motion. BACK: No midline thoracic or lumbar tenderness to palpation. Unable to reproduce upper back pain to palpation. ED Course Vital Signs 02/15/21 10:35 Temperature 97.9 F Pulse Rate 84 Respiratory 18 Rate Blood Pressure 116/80 [Left] O2 Sat by Pulse 99 Oximetry ED Medical Decision Making - Lab Data Result diagrams: 02/15/21 11:49 02/15/21 11:49 Lab Results 02/15/21 02/15/21 Range/Units 11:49 11:49 WBC 9.9 (4.5-11.0) K/mm3 RBC 4.72 (3.65-5.03) M/mm3 Hgb 15.1 (11.8-15.2) gm/dl Hct 45.7 H (35.5-45.6) % MCV 97 H (84-94) fl MCH 32 (28-32) pg MCHC 33 (32-34) % RDW 13.0 L (13.2-15.2) % Plt Count 223 (140-440) K/mm3 Lymph % (Auto) 18.0 (13.4-35.0) % [place] % (Auto) 7.5 H (0.0-7.3) % Eos % (Auto) 2.0 (0.0-4.3) % Baso % (Auto) 0.5 (0.0-1.8) % Lymph # (Auto) 1.8 (1.2-5.4) K/mm3 [place] # (Auto) 0.7 (0.0-0.8) K/mm3 Eos # (Auto) 0.2 (0.0-0.4) K/mm3 Baso # (Auto) 0.0 (0.0-0.1) K/mm3 Seg Neutrophils % 72.0 H (40.0-70.0) % Seg Neutrophils # 7.1 (1.8-7.7) K/mm3 Sodium 136 L (137-145) mmol/L Potassium 4.6 (3.6-5.0) mmol/L Chloride 99.9 (98-107) mmol/L Carbon Dioxide 25 (22-30) mmol/L Anion Gap 16 mmol/L BUN 20 (9-20) mg/dL Creatinine 1.3 (0.8-1.3) mg/dL Estimated GFR > 60 ml/min BUN/Creatinine Ratio 15 % Glucose 100 (75-100) mg/dL Calcium 9.3 (8.4-10.2) mg/dL Total Bilirubin 0.70 (0.1-1.2) mg/dL AST 11 (5-40) units/L ALT 9 (7-56) units/L Alkaline Phosphatase 91 (35-129) units/L Troponin T < 0.010 (0.00-0.029) ng/mL Total Protein 8.1 (6.3-8.2) g/dL Albumin 4.1 (3.9-5) g/dL Albumin/Globulin Ratio 1.0 % - EKG Data -: EKG Interpreted by Me EKG shows normal: sinus rhythm, axis, intervals, QRS complexes (Right bundle branch block), ST-T waves Rate: normal - EKG Data When compared to previous EKG there are: no significant change Interpretation: unchanged when compared t (08/10/16) - Radiology Data Radiology results: image reviewed interpreted by me: Chest x-ray does not show any acute process. There are no pleural effusions, obvious pneumonia and there is no pneumothorax. No widened mediastinum. - Medical Decision Making This patient presents to the emergency department with intermittent but sometimes intense upper back pains. He denies any chest pain, numbness or paresthesias, abdominal pain, nausea problems with bowel or bladder, or any other neurological deficits. Chest x-ray does not show any pneumonia, pleural effusions, pneumothorax, widened mediastinum, or any other acute process. EKG does not show any morphology consistent with ST elevation myocardial infarction. Labs have been unremarkable including CBC, metabolic panel and a negative troponin. The patient was given a dose of oral analgesia and upon reevaluation says he is feeling greatly improved and the back pain has not returned. He has good outpatient follow-up with primary care, cardiology and cardiothoracic surgery. For all these reasons the patient appears safe for discharge home at this time. Vital signs reassuring throughout his ED course including being afebrile. He will return to the emergency department with any worsening of his symptoms or wi th any acute distress. Critical Care Time: No Critical care attestation.: If time is entered above; I have spent that time in minutes in the direct care of this critically ill patient, excluding procedure time. ED Disposition Clinical Impression: History of thoracic aortic aneurysm repair, Upper back pain Disposition: HOME / SELF CARE / HOMELESS Is pt being admited?: No Condition: Stable Instructions: Acute Back Pain, Adult Additional Instructions: Please follow-up with your primary care physician, rv repairer, and cardiothoracic surgeon. You have been prescribed a medication that is sedating and therefore should not be taken prior to driving, working, and responsible for children and in no way should be mixed with alcohol of any quantity. Return to the emergency department with any worsening of your symptoms, new or concerning symptoms not addressed during this current emergency department visit, or with any acute distress. Prescriptions: oxyCODONE /ACETAMINOPHEN [Percocet 5/325] 1 tab PO Q6HR PRN #10 tablet PRN Reason: Pain Referrals: PCP, Your [Other] - 3-5 Days Clothing Sorter, Your [Other] - 3-5 Days Cardiothoracic Surgeon, Your [Other] - 3-5 Days Time of Disposition: 14:10
[2021-02-15] MEDS ORDERED: oxyCODONE /ACETAMINOPHEN 5-325MG TAB PO ONE (11:23)
--- NOTE | 2021-02-15 11:31 | XRay Report ---
XR chest routine 2V INDICATION / CLINICAL INFORMATION: Chest Pain. COMPARISON: 08/09/2016 FINDINGS: SUPPORT DEVICES: None. HEART /PULMONARY VASCULATURE: Median sternotomy changes. Cardiac silhouette is unchanged. No signific ant pulmonary vasculature congestion. LUNGS / PLEURA: No significant pulmonary or pleural abnormality. No pneumothorax. ADDITIONAL FINDINGS: The thoracic aorta is tortuous and aneurysmal, though unchanged in appearance fr om 2017 examination. IMPRESSION: Stable appearance of the chest. No acute abnormality. Signer Name: Rudy Mohan MD Signed: 02/15/2021 11:26 AM Workstation Name: [id number]
[2021-02-15 12:10] LABS: Basophils % (Auto) 0.5 % (0.0-1.8); Eosinophils # (Auto) 0.2 K/mm3 (0.0-0.4); Hematocrit 45.7 % (35.5-45.6); Hemoglobin 15.1 gm/dl (11.8-15.2); Lymphocytes # (Auto) 1.8 K/mm3 (1.2-5.4); Mean Corpuscular HGB Conc 33 % (32-34); Mean Corpuscular Volume 97 fl (84-94); Monocytes # (Auto) 0.7 K/mm3 (0.0-0.8); Monocytes % (Auto) 7.5 % (0.0-7.3); Platelet Count 223 K/mm3 (140-440); Red Blood Count 4.72 M/mm3 (3.65-5.03)
[2021-02-15 13:35] LABS: Alanine Aminotransferase 9 units/L (7-56); Albumin 4.1 g/dL (3.9-5); BUN/Creatinine Ratio 15; Blood Urea Nitrogen 20 mg/dL (9-20); Calcium 9.3 mg/dL (8.4-10.2); Hemolysis Index 22
--- NOTE | 2021-02-16 09:08 | Electrocardiograph Report ---
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
== END 2021-02-15 14:27 | disposition home or self-care (01) ==
LOC: ED 10:28
DX: M54.6 Pain in thoracic spine (principal); Z86.79 Personal history of other diseases of the circulatory system; I10 Essential (primary) hypertension; F41.9 Anxiety disorder, unspecified; Z88.5 Allergy status to narcotic agent; Z88.6 Allergy status to analgesic agent; Z88.8 Allergy status to other drugs, medicaments and biological substances; Z79.899 Other long term (current) drug therapy
CPT/HCPCS: 36415; 71046; 80053; 84484; 85025; 93005; 99284

== ENCOUNTER 2021-12-22 09:17 | Emergency (ER) | payer MEDICARE ==
[2021-12-22 11:21] LABS: Basophils % (Auto) 0.5 % (0.0-1.8); Eosinophils # (Auto) 0.1 K/mm3 (0.0-0.4); Eosinophils % (Auto) 1.1 % (0.0-4.3); Hematocrit 45.9 % (35.5-45.6); Hemoglobin 14.8 gm/dl (11.8-15.2); Lymphocytes # (Auto) 1.4 K/mm3 (1.2-5.4); Lymphocytes % (Auto) 17.2 % (13.4-35.0); Mean Corpuscular HGB Conc 32 % (32-34); Mean Corpuscular Volume 101 fl (84-94); Monocytes # (Auto) 0.7 K/mm3 (0.0-0.8); Platelet Count 164 K/mm3 (140-440); Red Blood Count 4.52 M/mm3 (3.65-5.03); Red Cell Distribution Width 13.8 % (13.2-15.2)
--- NOTE | 2021-12-22 11:33 | Emergency Department Report ---
HPI - General Chief Complaint: Chest Pain Time Seen by Provider: 12/22/21 11:14 - HPI HPI: Room 6 Patient is a 51-year-old male present with chief complaint of chest pain. Patient states for the past 3 to 4 days he has had intermittent sharp/punching substernal chest pain. Patient denies shortness of breath, nausea/vomiting or diaphoresis with this pain. Patient states the pain lasts seconds and then resolves. Patient states it occurred again this morning prompting him to come to the emergency department. Patient denies history of pleurisy or cough. Patient states she had a normal stress test approximate 1 year ago. Patient states she had a cardiac catheterization performed 9 to 10 months ago. Patient states there were 3 small blockages seen on a cath where no intervention was indicated ED Past Medical Hx - Past Medical History Hx Hypertension: Yes Hx Heart Attack/AMI: Yes (AORTIC GUILLERMO-ARCH) Hx Psychiatric Treatment: Yes (Anxiety) - Surgical History Additional Surgical History: spinal fusion AORTC VALVE REPLACED, HERNIA REPAIR, ABD RESECTION, aortic dissection repair - Family History Family history: no significant - Social History Smoking Status: Never Smoker Substance Use Type: None (Denies illicit drug use), Alcohol (Occasional) - Medications Home Medications: Home Medications Medication Instructions Recorded Confirmed Last Taken Type Aspirin 81 mg PO QDAY 10/16/18 10/16/18 1 Day Ago History ~10/15/18 Butalb/Acetaminophen/Caffeine 1 cap PO Q6HR PRN 10/16/18 10/16/18 1 Day Ago History [Fioricet 50-300-40 mg CAP] ~10/15/18 Fluticasone Propionate [Flovent 50 mcg INNOSTRIL PRN 10/16/18 10/16/18 1 Day Ago History Diskus] ~10/15/18 Metoprolol Xl [Metoprolol 100 mg PO BID 10/16/18 10/16/18 10/15/18 History SUCCINATE ER TAB] Sucralfate [Carafate] 1 gm PO Q6HR 10/16/18 10/16/18 10/15/18 History oxyCODONE /ACETAMINOPHEN [Percocet 1 tab PO Q6HR PRN #10 tablet 02/15/21 Unknown Rx 5/325] LORazepam [Ativan] 1 mg PO BID PRN #14 tab 12/22/21 Unknown Rx Metoprolol Xl [Metoprolol 100 mg PO QDAY #60 tablet 12/22/21 Unknown Rx SUCCINATE ER TAB] ED Review of Systems ROS: Stated complaint: CHEST PAIN Other details as noted in HPI Constitutional: denies: diaphoresis Eyes: denies: eye pain ENT: denies: throat pain Respiratory: denies: cough, shortness of breath Cardiovascular: chest pain Endocrine: no symptoms reported Gastrointestinal: denies: nausea, vomiting Genitourinary: denies: dysuria Musculoskeletal: denies: back pain Neurological: denies: headache Physical Exam - Physical Exam Vital Signs: Vital Signs 12/22/21 09:19 Temperature 98.4 F Pulse Rate 54 L Respiratory 18 Rate Blood Pressure 160/80 [Right] O2 Sat by Pulse 100 Oximetry Physical Exam: GENERAL: The patient is well-developed well-nourished male lying on stretcher not appearing to be in acute distress. [] HEENT: Normocephalic. Atraumatic. Extraocular motions are intact. Patient has moist mucous membranes. NECK: Supple. Trachea midline CHEST/LUNGS: Clear to auscultation. There is no respiratory distress noted. HEART/CARDIOVASCULAR: Regular. There is no tachycardia. There is no gallop rub or murmur. ABDOMEN: Abdomen is soft, nontender. Patient has normal bowel sounds. There is no abdominal distention. SKIN: There is no rash. There is no edema. There is no diaphoresis. NEURO: The patient is awake, alert, and oriented. The patient is cooperative. The patient has no focal neurologic deficits. The patient has normal speech. GCS 15 MUSCULOSKELETAL: There is no evidence of acute injury. ED Course Vital Signs 12/22/21 09:19 Temperature 98.4 F Pulse Rate 54 L Respiratory 18 Rate Blood Pressure 160/80 [Right] O2 Sat by Pulse 100 Oximetry - Consultations Consultation #1: 12/22/21 15:[address] Alfonso paged 12/22/21 15:[address] Alfonso-patient may be discharged home he will have the office contact him to set up a follow-up appointment ED Medical Decision Making - Lab Data Result diagrams: 12/22/21 10:58 12/22/21 10:58 Laboratory Tests 12/22/21 12/22/21 10:58 10:58 WBC 8.2 RBC 4.52 Hgb 14.8 Hct 45.9 H MCV 101 H MCH 33 H MCHC 32 RDW 13.8 Plt Count 164 Lymph % (Auto) 17.2 [place] % (Auto) 8.0 H Eos % (Auto) 1.1 Baso % (Auto) 0.5 Lymph # (Auto) 1.4 [place] # (Auto) 0.7 Eos # (Auto) 0.1 Baso # (Auto) 0.0 Seg Neutrophils % 73.2 H Seg Neutrophils # 6.0 Sodium 135 L Potassium 4.8 Chloride 101.2 Carbon Dioxide 29 Anion Gap 10 BUN 12 Creatinine 1.1 Estimated GFR > 60 BUN/Creatinine Ratio 11 Glucose 97 Calcium 9.4 Total Bilirubin 0.60 AST 13 ALT 9 Alkaline Phosphatase 82 Troponin T < 0.010 Total Protein 7.3 Albumin 4.3 Albumin/Globulin Ratio 1.4 Critical care attestation.: If time is entered above; I have spent that time in minutes in the direct care of this critically ill patient, excluding procedure time. ED Disposition Clinical Impression: Atypical chest pain Disposition: 01 HOME / SELF CARE / HOMELESS Is pt being admited?: No Does the pt Need Aspirin: No Condition: Stable Instructions: Nonspecific Chest Pain, Adult Additional Instructions: Return to the emergency department should you develop worsening symptoms, inability to tolerate food or liquids, high fever or any other concerns Prescriptions: LORazepam [Ativan] 1 mg PO BID PRN #14 tab PRN Reason: Anxiety Metoprolol Xl [Metoprolol SUCCINATE ER TAB] 100 mg PO QDAY #60 tablet Referrals: SHANIQUE BERGER MD [Primary Care Provider] - 3-[address] Alfonso, [place] [facility] [Other] - 3-5 Days Time of Disposition: 15:43
--- NOTE | 2021-12-22 11:41 | XRay Report ---
CHEST 2 VIEWS INDICATION / CLINICAL INFORMATION: Chest Pain. COMPARISON: 2 views of the chest from 02/15/2021. FINDINGS: SUPPORT DEVICES: None. HEART / MEDIASTINUM: Normal size of the cardiac silhouette. Sternotomy changes are noted. The aortic arch and descending thoracic aorta are notably less prominent compared to the prior study. LUNGS / PLEURA: No significant pulmonary abnormality. No significant pleural effusion. No pneumothora x. ADDITIONAL FINDINGS: Clips are again seen along the right axilla. IMPRESSION: 1. No acute abnormality of the chest. 2. Additional findings as above. Signer Name: Onel Tafoya MD Signed: 12/22/2021 11:36 AM Workstation Name: [email or web address]
[2021-12-22 11:45] LABS: Alanine Aminotransferase 9 units/L (7-56); Albumin 4.3 g/dL (3.9-5); BUN/Creatinine Ratio 11; Blood Urea Nitrogen 12 mg/dL (9-20); Calcium 9.4 mg/dL (8.4-10.2); Hemolysis Index 8
--- NOTE | 2021-12-22 14:47 | Cat Scan Report ---
CTA CHEST WITH CONTRAST INDICATION / CLINICAL INFORMATION: Chest pain. TECHNIQUE: Axial CT images were obtained through the chest after injection of 100 cc Omnipaque 350 IV contrast. 3 plane MIP and/or 3D reconstructions were produced. All CT scans at this location are per formed using CT dose reduction for ALARA by means of automated exposure control. COMPARISON: CTA dated 06/16/2015 FINDINGS: PULMONARY ARTERIES: No pulmonary emboli. THORACIC AORTA: Postsurgical change at the proximal ascending thoracic aorta for a prior type A disse ction. There is a redemonstrated false lumen involving the lateral aspect of the aortic arch. A abdom inal aortic dissection is discussed below. HEART: No significant abnormality. CORONARY ARTERY CALCIFICATION: None. MEDIASTINUM / AROLDO: Mildly enlarged paratracheal lymph nodes measuring up to 1.1 cm, not significant change. PLEURA: No pleural effusion. No pneumothorax. LUNGS: No acute air space or interstitial disease. ADDITIONAL FINDINGS: None. UPPER ABDOMEN: There is a dissection through the abdominal aorta which extends down into the right ex ternal iliac artery. This dissection does not appear significantly changed in extent compared to 2015. However, the aorta does appear increased in diameter measuring up to 4.9 cm at the aortic hiatu s. There is diverticulosis without diverticulitis. Uncomplicated cholelithiasis. Hypoattenuating lesi ons within the left kidney, possibly representing renal cysts. These were present dating back to 2015. SKELETAL STRUCTURES: Scattered degeneration. IMPRESSION: 1. No CT evidence for pulmonary embolism. 2. Postsurgical change to the ascending thoracic aorta from prior type A dissection. There is redemon stration of a false lumen involving the lateral aspect of the aortic arch. 3. There is redemonstration of an abdominal aortic dissection extending into the right external iliac artery. The extent of the dissection appears similar; however, there is now interval aneurysmal dila tation of the aorta at the aortic hiatus, measuring 4.9 cm. 4. Additional findings as above. Signer Name: Graham Fernando DO Signed: 12/22/2021 2:43 PM Workstation Name: [email or web address]
[2021-12-22] MEDS ORDERED: cloNIDine 0.2 MG TAB PO ONE (15:24)
[2021-12-22 16:03] VITALS: BP 143/82
--- NOTE | 2021-12-26 09:32 | Electrocardiograph Report ---
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
== END 2021-12-22 15:57 | disposition home or self-care (01) ==
LOC: ED 09:17
DX: R07.9 Chest pain, unspecified (principal); I10 Essential (primary) hypertension; I21.9 Acute myocardial infarction, unspecified; F41.9 Anxiety disorder, unspecified
CPT/HCPCS: 36415; 71046; 71275; 80053; 84484; 85025; 93005; 99284; Q9967